=== PATIENT | male | born 1950 | race Two or more races ===

== ENCOUNTER 2024-03-10 09:43 | Outpatient (RCR) | payer MEDICARE, OTHER, MEDICAID, SELFPAY ==
--- NOTE | 2024-03-15 23:13 | CTCFLWUP_ITS ---
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 HISTORY OF PRESENT ILLNESS: Patient is 73-year-old male Slovak-speaking, communication helped with by director medical Nasreen Jeronimo mitchell Patient have stage IV KRAS wild-type BRAF unmutated MSI stable colonic adenocarcinoma with multip le liver mets. S/p sigmoid colectomy in April 2021. Patient was on modified FOLFOX plus bevacizu mab between 08/28/19992021 till March 2022 at that time patient progressed and was started on FOLF IRI and Avastin starting July 06, 2023. On November 20, 2023 outside MRI showed 2 small right lobe liver lesions however PET was negative. Right liver biopsy confirmed metastatic adeno cell carcinoma cons istent with a colorectal cancer. Patient have been on chemotherapy since he was initially diagnosed with stage III colorectal cancer i n 2020. Patient's last chemotherapy was on February 02, 2024. Patient was referred to [facility] for possible resection of the liver lesion. Patient is here to inform me that he already have appointment with the surgeon and doing well. He ne ed to continue holding his therapy for at least 6 weeks before resection can be done. PAST MEDICAL HISTORY: High blood pressure, colorectal cancer s/p colectomy MEDICATIONS: tamsulosin simvastatin amlodipine Decadron IV [dexamethasone IV] Emend [fosaprepitant dimeglumine] Benadryl IV [diphenhydramine IV] dutasteride Zarxio [filgrastim-sndz] Eloxatin [OXALIplatin] D5W Aloxi [palonosetron] 5-FU [fluorouracil] Avastin [bevacizumab] bevacizumab-awwb ramipriL Zarxio [filgrastim-sndz] Zarxio [filgrastim-sndz] bevacizumab-leyda alteplase Decadron IV [dexamethasone IV] Zofran IV [ondansetron IV] Ativan PO [lorazepam PO] atropine Camptosar [irinotecan] LVR [leucovorin] Normal Saline [sodium chloride 0.9 %] 5-FU [fluorouracil] Heparin 1:100 ALLERGIES: No Known Drug Allergies REVIEW OF SYSTEMS EAR MUFF ASSEMBLER: No headache, seizures or blurring of vision. GI: No nausea, vomiting, diarrhea or constipation. CVS: No palpitations or angina pains. Respiratory: No cough, chest pain or shortness of breath. VITAL SIGNS: Date Time PHYSICAL EXAMINATION: Conjunctivae is white. Oral cavity is dry. Chest is clear to auscultation. No wheezes or rales audible. CVS: Rhythm regular, no murmurs or gallops present. Abdomen is soft. No hepatosplenomegaly. Extremities: No pedal edema or cyanosis. LABORATORY DATA: Date Time ASSESSMENT: Stage IV colon cancer with liver metastatic disease Status post colectomy followed by adjuvant therapy Initially treated with FOLFOX with bevacizumab Progressed and have been on FOLFIRI with bevacizumab Last treatment on February 02, 2024 Found with new liver lesions PLAN: Continue holding chemotherapy Patient will get resection of his liver lesions Will resume chemotherapy once surgery is completed RTC in 6 weeks Continue to hold chemotherapy until patient has been seen by me and cleared depending on surgical rec ommendation cc: Meredith Haney, Referring: Eb Haney Electronically Signed {Object.Sanct_Date} at {Object.Sanct_Time} {Object.Sanct_ID*PnP.NameFL@M}, {Object.Sanct_ID*PnP.Suffix@U} Patient: FAITH SALINAS : 1950 MR#: [id number] Account: [id number] FOLLOW UP NOTE Page 4 of 4
== END 2024-04-02 23:59 | disposition home or self-care (01) ==
LOC: SCTC 09:43
PROVIDERS: PCP Family Medicine; Referring Provider Family Medicine; Visit Provider Internal Medicine Hematology & Oncology
DX: C18.7 Malignant neoplasm of sigmoid colon (principal); C78.7 Secondary malignant neoplasm of liver and intrahepatic bile duct; Z90.49 Acquired absence of other specified parts of digestive tract
CPT/HCPCS: 99213; G0463

== ENCOUNTER 2024-04-18 11:39 | Outpatient (RCR) | payer MEDICARE, OTHER, MEDICAID, SELFPAY ==
[2024-04-18 13:33] LABS: Basophils % (Auto) 1 % (0-2.5); Eosinophils # (Auto) 0.2 Thou/mm3 (0.0-0.5); Eosinophils % (Auto) 3 % (0-10); Hematocrit 36.9 % (41.0-53.0); Hemoglobin 12.5 g/dL (13.5-16.0); Immature Granulocytes % (Auto) 0 % (0-0); Immature Granulocytes Auto 0.02 Thou/mm3 (0.00-0.00); Lymphocytes # (Auto) 1.9 Thou/mm3 (1.0-4.8); Lymphocytes % (Auto) 28 % (10-50); Mean Corpuscular HGB Conc 33.9 g/dl (31.0-37.0); Mean Corpuscular Hemoglobin 32.7 pg (25.0-35.0); Mean Corpuscular Volume 97 fL (80-100); Monocytes # (Auto) 0.7 Thou/mm3 (0.0-0.8); Monocytes % (Auto) 11 % (0-12); Neutrophils # (Auto) 3.8 Thou/mm3 (1.8-7.7); Neutrophils % (Auto) 58 % (37-80); Nucleated Red Blood Cell % 0 /100 WBC (0); Platelet Count 180 Thou/mm3 (140-440); RDW Standard Deviation 46.5 fL (35.1-43.9); Red Blood Count 3.82 Miln/mm3 (4.50-5.90); White Blood Count 6.6 Thou/mm3 (3.8-10.6)
[2024-04-18 13:47] LABS: Alanine Aminotransferase 83 U/L (10-49); Albumin, Serum 3.9 gm/dL (3.4-4.8); Albumin/Globulin Ratio 1.1 (1.2-2.2); Alkaline Phosphatase 210 U/L (46-116); Anion Gap 9 (7-16); Aspartate Amino Transferase 63 U/L (0-34); BUN/Creatinine Ratio 14 Ratio (12-20); Bilirubin,Total 0.4 mg/dL (0.3-1.2); Blood Urea Nitrogen 11 mg/dL (9-23); Calcium 9.6 mg/dL (8.3-10.6); Calcium (Corrected) 9.7 mg/dL (8.5-10.1); Carbon Dioxide 24.5 mMol/L (20.0-31.0); Chloride 104 mMol/L (98-107); Creatinine (Component) 0.8 mg/dL (0.6-1.3); Globulin 3.4 gm/dL (2.3-3.5); Glucose 137 mg/dL (74-106); Osmolality,Calculated 275 (275-295); Sodium 137 mMol/L (136-145); Total Protein 7.3 gm/dL (5.7-8.2); eGFR > 60 See Note
[2024-04-18 13:50] LABS: Carcinoembryonic Antigen 2.7 ng/mL (0.0-5.0)
--- NOTE | 2024-05-02 00:40 | CTCFLWUP_ITS ---
Patient: FAITH SALINAS : 1950 Page 2 of 3 FOLLOW UP NOTE DATE OF SERVICE: 04/18/2024 NAME: FAITH SALINAS ACCOUNT: [id number] : 1950 AGE: 73 INTERVAL HISTORY: ONCOLOGY HISTORY: DIAGNOSIS: Malignant neoplasm of sigmoid colon [ICD10] C18.7 DATE OF DIAGNOSIS: 05/27/2021 STAGE/TNM: Stage 4 TREATMENT HISTORY: Care?Plan Start?Date Cycle Day Intent CapOX?adj?T3N1?3mon?4?cycles 05/27/2021 1 21 Curative?(adjuvant) mFOLFOX-6?+?Bevacizumab?5?mg/kg 08/27/2021 1 14 Palliative Bevacizumab?7.5?mg/kg?-?Met 04/02/2022 1 21 Palliative FOLFIRI?-?5-FU?400?and?2400?CIV,?LVR?400,?Irinotecan?180 07/06/2023 1 28 Palliative Bevacizumab?5mg/kg 09/21/2023 1 28 Palliative HISTORY OF PRESENT ILLNESS: Patient is 73-year-old male Mongolian-speaking, communication helped with by medical coordinator pesticide use Ms. Jeronimo yoo. Patient have stage IV KRAS wild-type BRAF unmutated MSI stable colonic adenocarcinoma with multip le liver mets. S/p sigmoid colectomy in April 2021. Patient was on modified FOLFOX plus bevacizu mab between 08/28/19992021 till March 2022 at that time patient progressed and was started on FOLF IRI and Avastin starting July 06, 2023. On November 20, 2023 outside MRI showed 2 small right lobe liver lesions however PET was negative. Right liver biopsy confirmed metastatic adeno cell carcinoma cons istent with a colorectal cancer. Patient have been on chemotherapy since he was initially diagnosed with stage III colorectal cancer i n 2020. Patient's last chemotherapy was on February 02, 2024. Patient was referred to [facility] for possible resection of the liver lesion. Patient is here to inform me that he already have appointment with the surgeon and doing well. He ne ed to continue holding his therapy for at least 6 weeks before resection can be done. OTHER MEDICAL HISTORY/CONDITIONS: FAMILY HISTORY: SOCIAL HISTORY: MEDICATIONS: 1. amlodipine - 5 mg 1 tab Daily 2. dutasteride - 0.5 mg 1 Capsule Daily 3. ramipriL - 10 mg 1 Capsule Daily 4. simvastatin - 20 mg 1 tab Daily 5. tamsulosin - 0.4 mg 1 Capsule Daily Medications Last Reconciled by Thea Leblanc MA on 04/18/2024 ALLERGIES: No Known Drug Allergies REVIEW OF SYSTEMS: A complete 14-point review of systems was performed and is negative except as noted in interval histo ry. PHYSICAL EXAMINATION: VITAL SIGNS: Temperature?96.5, B/P?124/67, Oxygen?Saturation?96% Weight?192?lbs PAIN: 0 - No pain ECOG Performance Status: 0 - Asymptomatic and fully active GENERAL APPEARANCE: Appears well, in no apparent distress, appropriately interactive. HEENT: Normocephalic, no temporal wasting, normal conjunctiva, no scleral icterus, normal hearing, li ps without lesions, neck normal range of motion. CARDIOVASCULAR: Not assessed. PULMONARY: Normal respiratory effort, no respiratory distress or use of accessory muscles, speaking i n full sentences, no tachypnea. EXTREMITIES: No pedal edema or cyanosis. SKIN: Normal skin appearance. NEUROLOGIC: Alert and oriented x4. PSHYCHIATRIC: Appropriate affect, mood normal, behavior normal, intact thought and speech. LABORATORY DATA: I have personally reviewed and interpreted each of the patient?s relevant lab tests, abnormal finding s are below: Date 04/18/24 ??WHITE?BLOOD?COUNT?(Thou/mm3) 6.6 ??RED?BLOOD?COUNT?(Miln/mm3) 3.82?L ??HEMOGLOBIN?(gm/dl) 12.5?L ??HEMATOCRIT?(%) 36.9?L ??PLATELET?COUNT?(Thou/mm3) 180 ??NEUTROPHILS?%,?AUTO?(%) 58 ??LYMPH?%,?AUTO?(%) 28 ??NEUTROPHILS,?AUTO?(Thou/mm3) 3.8 ASSESSMENT/PLAN: Stage IV colon cancer with liver metastatic disease Status post colectomy followed by adjuvant therapy Initially treated with FOLFOX with bevacizumab Progressed and have been on FOLFIRI with bevacizumab Last treatment on February 02, 2024 Found with new liver lesions Resume chemo with no lorenza ORDERS: Cbc,cmp,cea RETURN TO CLINIC: 6-8 weeks BILLING AND COMPLIANCE: I reviewed external records from providers outside my specialty as summarized above. I spent a total of 50 minutes on this patient?s care on the day of their visit excluding time spent related to any bi lled procedures. This time includes time spent with the patient as well as time spent documenting in the medical record, reviewing patients records and tests, obtaining history, placing orders, communi cating with other healthcare professionals, counseling the patient, family or caregiver, and/or care coordination for the diagnoses above. Electronically Signed by: Amado Salas MD T: 12:37 AM CC: PCP: Eb Haney Referring: Eb Haney This document was completed utilizing speech recognition software. Grammatical errors, random word in sertions, pronoun errors, and incomplete sentences are an occasional consequence of this system due t o software limitations, ambient noise, and hardware issues. Any formal questions or concerns about th e content, text or information contained within the body of this dictation should be directly address ed to the provider for clarification.
== END 2024-05-03 23:59 | disposition home or self-care (01) ==
LOC: SCTC 11:39
PROVIDERS: PCP Family Medicine; Referring Provider Family Medicine; Visit Provider Internal Medicine Hematology & Oncology
DX: C18.7 Malignant neoplasm of sigmoid colon (principal); C78.7 Secondary malignant neoplasm of liver and intrahepatic bile duct; Z90.49 Acquired absence of other specified parts of digestive tract; Z92.3 Personal history of irradiation
CPT/HCPCS: 36591; 80053; 82378; 85025; 99213; A4216; J1642; G0463

== ENCOUNTER → 2024-07-11 | Outpatient (CLI) | payer MEDICARE, OTHER, MEDICAID, SELFPAY ==
--- NOTE | 2024-07-11 14:00 | XR_ITS ---
Examination: CT chest with intravenous contrast CT abdomen with intravenous contrast CT pelvis with intravenous contrast CT chest without intravenous contrast CT abdomen without intravenous contrast CT pelvis without intravenous contrast 2-D coronal and sagittal reconstructions Time of exam: July 11, 2024 1448 hrs. Comparison MR abdomen November 20, 2023, PET CT scan November 03, 2023, CT chest abdomen pelvis September 30, 2023 Indications: Diagnosis malignant neoplasm sigmoid colon 3 years ago, hepatic metastases CTDI: vol (mGy) : 24.9 DLP: (mGycm): 1380 Technique: Multiple axial images of the chest, abdomen and pelvis with intravenous contrast, 3.0 mm slice thickness. Images obtained post intravenous injection Isovue 370 60 cc. 2-D sagittal and coronal reconstructions. Low dose protocols were performed. One or more of the following dose reduction techniques were used; automated exposure control, adjustment of the mA and/or KV according to patient size, use of iterative reconstruction technique. Findings: No thoracic aortic aneurysm dilatation Pulmonary artery segments are not enlarged Mild calcification left main coronary artery No paratracheal tracheobronchial or bronchopulmonary adenopathy No pneumonia or pulmonary edema or pleural disease or pulmonary nodules Anterior mildly enhancing right lobe liver lesion 5.6 cm compared to 1.[address] abdomen September 30, 2023 and compared to 14 mm on MR abdomen November 20, 2023 Posterior right lobe liver lesion measures 21 mm compared to [address] abdomen September 30, 2023 No gallstones No pancreatic or adrenal mass No hydronephrosis No interval abdominal or pelvic lymphadenopathy Normal appendix No ascites No bowel obstruction Urinary bladder intact Impression: No mediastinal lymphadenopathy No pneumonia, pulmonary edema, pleural disease or pulmonary nodules Progression of hepatic metastatic disease compared to MR abdomen November 20, 2023, PET CT scan November 03, 2023, CT chest abdomen September 30, 2023
== END | disposition home or self-care (01) ==
LOC: CCTX 13:08
PROVIDERS: PCP Family Medicine; Referring Provider Internal Medicine Hematology & Oncology; Visit Provider Internal Medicine Hematology & Oncology
DX: C78.7 Secondary malignant neoplasm of liver and intrahepatic bile duct (principal); C18.7 Malignant neoplasm of sigmoid colon
CPT/HCPCS: 71270; 74178; A4649; Q9967

== ENCOUNTER 2024-07-25 09:41 | Outpatient (RCR) | payer MEDICARE, OTHER, MEDICAID, SELFPAY ==
[2024-07-05 09:57] LABS: Basophils % (Auto) 0 % (0-2.5); Eosinophils # (Auto) 0.1 Thou/mm3 (0.0-0.5); Eosinophils % (Auto) 3 % (0-10); Hematocrit 38.6 % (41.0-53.0); Hemoglobin 13.1 g/dL (13.5-16.0); Immature Granulocytes % (Auto) 0 % (0-0); Immature Granulocytes Auto 0.02 Thou/mm3 (0.00-0.00); Lymphocytes # (Auto) 1.5 Thou/mm3 (1.0-4.8); Lymphocytes % (Auto) 30 % (10-50); Mean Corpuscular HGB Conc 33.9 g/dl (31.0-37.0); Mean Corpuscular Hemoglobin 32.7 pg (25.0-35.0); Mean Corpuscular Volume 96 fL (80-100); Monocytes # (Auto) 0.6 Thou/mm3 (0.0-0.8); Monocytes % (Auto) 13 % (0-12); Neutrophils # (Auto) 2.7 Thou/mm3 (1.8-7.7); Neutrophils % (Auto) 54 % (37-80); Nucleated Red Blood Cell % 0 /100 WBC (0); Platelet Count 200 Thou/mm3 (140-440); RDW Standard Deviation 47.8 fL (35.1-43.9); Red Blood Count 4.01 Miln/mm3 (4.50-5.90); White Blood Count 4.9 Thou/mm3 (3.8-10.6)
[2024-07-05 10:23] LABS: Alanine Aminotransferase 31 U/L (10-49); Albumin/Globulin Ratio 1.3 (1.2-2.2); Alkaline Phosphatase 121 U/L (46-116); Anion Gap 9 (7-16); Aspartate Amino Transferase 56 U/L (0-34); BUN/Creatinine Ratio 9 Ratio (12-20); Bilirubin,Total 0.5 mg/dL (0.3-1.2); Blood Urea Nitrogen 7 mg/dL (9-23); Calcium 9.1 mg/dL (8.3-10.6); Calcium (Corrected) 9.1 mg/dL (8.5-10.1); Carbon Dioxide 24.4 mMol/L (20.0-31.0); Chloride 106 mMol/L (98-107); Creatinine (Component) 0.8 mg/dL (0.6-1.3); Glucose 179 mg/dL (74-106); Osmolality,Calculated 279 (275-295); Potassium 3.9 mMol/L (3.4-5.1); Sodium 139 mMol/L (136-145); eGFR > 60 See Note
[2024-07-05 10:26] LABS: Carcinoembryonic Antigen 3.2 ng/mL (0.0-5.0)
--- NOTE | 2024-07-25 10:45 | CTCFLWUP_ITS ---
Patient: FAITH SALINAS : 1950 Page 2 of 2 FOLLOW UP NOTE DATE OF SERVICE: 07/25/2024 NAME: FAITH SALINAS ACCOUNT: [id number] : 1950 AGE: 73 INTERVAL HISTORY: Patient have completed RFA to his liver lesions. He is doing well. ONCOLOGY HISTORY:?[facility] Hx? DIAGNOSIS: Malignant neoplasm of sigmoid colon [ICD10] C18.7 DATE OF DIAGNOSIS: 05/27/2021 STAGE/TNM: Stage 4 TREATMENT HISTORY: Care?Plan Start?Date Cycle Day Intent CapOX?adj?T3N1?3mon?4?cycles 05/27/2021 1 21 Curative?(adjuvant) mFOLFOX-6?+?Bevacizumab?5?mg/kg 08/27/2021 1 14 Palliative Bevacizumab?7.5?mg/kg?-?Met 04/02/2022 1 21 Palliative FOLFIRI?-?5-FU?400?and?2400?CIV,?LVR?400,?Irinotecan?180 07/06/2023 1 28 Palliative Bevacizumab?5mg/kg 09/21/2023 1 28 Palliative HISTORY OF PRESENT ILLNESS: Patient is 73-year-old male Romanian-speaking, communication helped with by medical assistant per diem Ms. Garsia. 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 S/p sigmoid colectomy in April 2021. Patient was on modified FOLFOX plus bevacizumab between 08/28/19992021 till March 2022 at that time patient progressed and was started on FOLFIRI and Avastin starting July 06, 2023. On November 20, 2023 outside MRI showed 2 small right lobe liver lesions however PET was negative. Right liver biopsy confirmed metastatic adeno cell carcinoma cons istent with a colorectal cancer. Patient have been on chemotherapy since he was initially diagnosed with stage III colorectal cancer in 2020. Patient's last chemotherapy was on February 02, 2024. Patient was referred to [facility] for possible resection of the liver lesion. Patient is here to inform me that he already have appointment with the surgeon and doing well. He need to continue holding his therapy for at least 6 weeks before resection can be done. 5Anterior mildly enhancing right lobe liver lesion 5.6 cm compared to 1.[address] abdomen September 30, 2023 and compared to 14 mm on MR abdomen November 20, 2023 Posterior right lobe liver lesion measures 21 mm compared to [address] abdomen September 30, 2023 -Patient had RFA done on 07/21/2024. OTHER MEDICAL HISTORY/CONDITIONS: FAMILY HISTORY: ?[facility] Hx? SOCIAL HISTORY: MEDICATIONS: 1. amlodipine - 5 mg 1 tab Daily 2. dutasteride - 0.5 mg 1 Capsule Daily 3. mouthwashes - As directed 4. ramipriL - 10 mg 1 Capsule Daily 5. simvastatin - 20 mg 1 tab Daily 6. tamsulosin - 0.4 mg 1 Capsule Daily?Palabra Meds? Medications Last Reconciled by Cristina Taylor MA on 06/21/2024 ALLERGIES: No Known Drug Allergies REVIEW OF SYSTEMS: A complete 14-point review of systems was performed and is negative except as noted in interval history. PHYSICAL EXAMINATION:?[facility] PE? VITAL SIGNS: ECOG Performance Status: 0 - Asymptomatic and fully active GENERAL APPEARANCE: Appears well, in no apparent distress, appropriately interactive. HEENT: Normocephalic, no temporal wasting, normal conjunctiva, no scleral icterus, normal hearing, lips without lesions, neck normal range of motion. CARDIOVASCULAR: Not assessed. PULMONARY: Normal respiratory effort, no respiratory distress or use of accessory muscles, speaking in full sentences, no tachypnea. EXTREMITIES: No pedal edema or cyanosis. SKIN: Normal skin appearance. NEUROLOGIC: Alert and oriented x4. PSHYCHIATRIC: Appropriate affect, mood normal, behavior normal, intact thought and speech. LABORATORY DATA: I have personally reviewed and interpreted each of the patient?s relevant lab tests, abnormal findings are below: Date 06/13/24 07/05/24 ??WHITE?BLOOD?COUNT?(Thou/mm3) ? 4.9 ??RED?BLOOD?COUNT?(Miln/mm3) ? 4.01?L ??HEMOGLOBIN?(gm/dl) ? 13.1?L ??HEMATOCRIT?(%) ? 38.6?L ??PLATELET?COUNT?(Thou/mm3) ? 200 ??NEUTROPHILS?%,?AUTO?(%) ? 54 ??LYMPH?%,?AUTO?(%) ? 30 ??NEUTROPHILS,?AUTO?(Thou/mm3) ? 2.7 ??GLUCOSE,RANDOM?(mg/dL) 193?H 179?H ??BLOOD?UREA?NITROGEN?(mg/dL) 14 7?L ??CREATININE?(mg/dL) 0.80 0.80 ??SODIUM?(mmol/L) 140 139 ??POTASSIUM?(mmol/L) 3.7 3.9 ??CHLORIDE?(mmol/L) 108?H 106 ??CrCl?(CandG)?(ml/min) 88.82 87.95 ??AST/SGOT?(Unit/L) 49?H 56?H ??ALT/SGPT?(Unit/L) 65?H 31 ??ALKALINE?PHOSPHATASE?(Unit/L) 139?H 121?H ??BILIRUBIN,?TOTAL?(mg/dL) 0.5 0.5 ??PROTEIN?TOTAL?(gm/dl) 6.9 7.0 ??ALBUMIN,?SERUM?(gm/dl) 3.9 4.0 ??GLOBULIN?(gm/dl) 3.0 3.0 ??ALBUMIN/GLOBULIN?RATIO 1.3 1.3 ??CALCIUM,?SERUM?(mg/dL) 9.0 9.1 ??CALCIUM?SERUM?(CORRECTED)?(mg/dL) 9.1 9.1 ??CEA?(O*)?(ng/ml) ? 3.2 ASSESSMENT/PLAN:?Mike Salas Assessment/Plan? Stage IV colon cancer with liver metastatic disease Status post colectomy followed by adjuvant therapy Initially treated with FOLFOX with bevacizumab Progressed and have been on FOLFIRI with bevacizumab Last treatment on February 02, 2024 Found with new liver lesions Resume chemo with no lorenza Patient have completed RFA and will resume chemotherapy after August 17, 2024 ORDERS: Order # Description [id number] CBC + Comprehensive Metabolic Panel + [facility] [id number] Lab Appointment [id number] Follow Up Appointment [id number] Infusion 4 Hours [id number] Discontinue CIV Pump [id number] CBC [id number] Lab Appointment [id number] Infusion 4 Hours [id number] Discontinue CIV Pump [id number] CBC + Comprehensive Metabolic Panel + [facility] [id number] Lab Appointment [id number] Follow Up Appointment [id number] Infusion 4 Hours [id number] Discontinue CIV Pump [id number] CBC [id number] Lab Appointment [id number] Infusion 4 Hours [id number] Discontinue CIV Pump [id number] CBC + Comprehensive Metabolic Panel + [facility]A [id number] Lab Appointment [id number] Follow Up Appointment [id number] Infusion 4 Hours [id number] Discontinue CIV Pump [id number] CBC [id number] Lab Appointment [id number] Infusion 4 Hours [id number] Discontinue CIV Pump [id number] CBC + Comprehensive Metabolic Panel + [facility] [id number] Lab Appointment [id number] Follow Up Appointment [id number] Infusion 4 Hours [id number] Discontinue CIV Pump [id number] CBC [id number] Lab Appointment [id number] Infusion 4 Hours [id number] Discontinue CIV Pump [id number] CBC + Comprehensive Metabolic Panel + [facility]A [id number] Lab Appointment [id number] Follow Up Appointment [id number] Infusion 4 Hours [id number] Discontinue CIV Pump [id number] CBC [id number] Lab Appointment [id number] Infusion 4 Hours [id number] Discontinue CIV Pump [id number] CBC + Comprehensive Metabolic Panel + CEA [id number] Lab Appointment [id number] Follow Up Appointment MRI of the liver to see response to treatment. Can be completed after 16 August RETURN TO CLINIC: I will see him back in the clinic in 2 months. BILLING AND COMPLIANCE: I reviewed external records from providers outside my specialty as summarized above. I spent a total of 50 minutes on this patient?s care on the day of their visit excluding time spent related to any billed procedures. This time includes time spent with the patient as well as time spent documenting in the medical record, reviewing patients records and tests, obtaining history, placing orders, communicating with other healthcare professionals, counseling the patient, family or caregiver, and/or care coordination for the diagnoses above. Electronically Signed by: Amado Salas MD T: 10:42 AM CC: PCP: Eb Haney Referring: Eb Haney This document was completed utilizing speech recognition software. Grammatical errors, random word insertions, pronoun errors, and incomplete sentences are an occasional consequence of this system due to software limitations, ambient noise, and hardware issues. Any formal questions or concerns about the content, text or information contained within the body of this dictation should be directly addressed to the provider for clarification.
== END 2024-08-01 23:59 | disposition home or self-care (01) ==
LOC: SCTC 09:41
PROVIDERS: PCP Family Medicine; Referring Provider Family Medicine; Visit Provider Internal Medicine Hematology & Oncology
DX: Z51.11 Encounter for antineoplastic chemotherapy (principal); C18.7 Malignant neoplasm of sigmoid colon; C78.7 Secondary malignant neoplasm of liver and intrahepatic bile duct; Z90.49 Acquired absence of other specified parts of digestive tract
CPT/HCPCS: 36591; 80053; 82378; 85025; 96366; 96367; 96368; 96375; 96413; 96415; 96416; 99213; A4216; J0461; J0640; J1100; J1642; J2405; J7040; J7050; J9190; J9206; A9270; G0463

== ENCOUNTER 2024-08-31 10:37 | Outpatient (RCR) | payer MEDICARE, OTHER, MEDICAID, SELFPAY ==
[2024-08-12 11:07] LABS: Collection Type, Urine Voided
[2024-08-12 11:12] LABS: Basophils % (Auto) 0 % (0-2.5); Eosinophils # (Auto) 0.2 Thou/mm3 (0.0-0.5); Eosinophils % (Auto) 3 % (0-10); Hematocrit 36.5 % (41.0-53.0); Hemoglobin 12.3 g/dL (13.5-16.0); Immature Granulocytes % (Auto) 0 % (0-0); Immature Granulocytes Auto 0.02 Thou/mm3 (0.00-0.00); Lymphocytes # (Auto) 1.4 Thou/mm3 (1.0-4.8); Lymphocytes % (Auto) 24 % (10-50); Mean Corpuscular HGB Conc 33.7 g/dl (31.0-37.0); Mean Corpuscular Hemoglobin 32.4 pg (25.0-35.0); Mean Corpuscular Volume 96 fL (80-100); Monocytes # (Auto) 0.6 Thou/mm3 (0.0-0.8); Monocytes % (Auto) 10 % (0-12); Neutrophils # (Auto) 3.9 Thou/mm3 (1.8-7.7); Neutrophils % (Auto) 63 % (37-80); Nucleated Red Blood Cell % 0 /100 WBC (0); Platelet Count 153 Thou/mm3 (140-440); RDW Standard Deviation 47.8 fL (35.1-43.9); White Blood Count 6.1 Thou/mm3 (3.8-10.6)
[2024-08-12 11:25] LABS: Glucose Estimated Average 143 mg/dL (80-131); Hemoglobin A1C 6.6 % Hgb (4.8-6.0)
[2024-08-12 11:29] LABS: Bilirubin,Urine Negative (Negative); Blood,Urine Negative (Negative); Glucose, Urine Negative (Negative); Ketones,Urine Negative (Negative); Leukocyte Esterase,Urine Negative (Negative); Nitrite,Urine Negative (Negative); PH,Urine 5.5 (5.0-7.0); Protein,Urine Negative (Neg - Trace); RBC,Urine < 1 /hpf (0-3); Specific Gravity,Urine 1.018 (1.001-1.035); Squamous Epithelial Cell,Urine < 1 /hpf (0-5); Urobilinogen,Urine Negative mg/dL (0.0-1.0); WBC,Urine 4 /hpf (0-5)
[2024-08-12 11:30] LABS: Clarity,Urine Cloudy (Clear/Hazy); Color,Urine Drk-Brown (Lt Yel-Yel)
[2024-08-12 11:36] LABS: Alanine Aminotransferase 45 U/L (10-49); Albumin, Serum 3.8 gm/dL (3.4-4.8); Albumin/Globulin Ratio 1.2 (1.2-2.2); Alkaline Phosphatase 129 U/L (46-116); Anion Gap 9 (7-16); Aspartate Amino Transferase 66 U/L (0-34); BUN/Creatinine Ratio 11 Ratio (12-20); Bilirubin,Total 0.7 mg/dL (0.3-1.2); Blood Urea Nitrogen 10 mg/dL (9-23); Calcium 8.9 mg/dL (8.3-10.6); Calcium (Corrected) 9.1 mg/dL (8.5-10.1); Carbon Dioxide 23.7 mMol/L (20.0-31.0); Chloride 105 mMol/L (98-107); Creatinine (Component) 0.9 mg/dL (0.6-1.3); Globulin 3.2 gm/dL (2.3-3.5); Glucose 144 mg/dL (74-106); Osmolality,Calculated 277 (275-295); Potassium 3.7 mMol/L (3.4-5.1); Sodium 138 mMol/L (136-145); eGFR > 60 See Note
--- NOTE | 2024-08-23 14:47 | CTCFLWUP_ITS ---
Patient: TED LIAO : 1950 Page 2 of 2 FOLLOW UP NOTE DATE OF SERVICE: 08/23/2024 NAME: TED LIAO ACCOUNT: [id number] : 1950 AGE: 74 INTERVAL HISTORY: Patient have completed RFA to his liver lesions. Follow-up for colon cancer, liver lesion, pain and discomfort in both shoulders Ted Liao, a patient with a history of colon cancer, presents for follow-up after a liver lesion was found on his last scan in July 2024. He recently underwent a procedure on his liver with interventional radiology. The patient reports experiencing pain and discomfort in both shoulders. He has not received any chemotherapy since July. His CEA level has been stable and within normal limits. The patient is currently on Fulfori as part of his treatment regimen. Mr. Liao is scheduled for imaging in September to assess the response to the liver intervention. He will resume chemotherapy, with plans to add bevacizumab to his current regimen. The patient's next line of chemotherapy will be with Lonsurf and bevacizumab if progression is found. Medical History - Colon cancer - Liver lesion discovered in July 2024 Surgical History - Liver procedure with interventional radiology in July 2024 Medications and Supplements - Fulfuri - Bevacizumab - Recently added to current regimen Review of Systems Musculoskeletal: Positive for pain and discomfort in both shoulders. ONCOLOGY HISTORY: DIAGNOSIS: Malignant neoplasm of sigmoid colon [ICD10] C18.7 DATE OF DIAGNOSIS: 05/27/2021 STAGE/TNM: Stage 4 TREATMENT HISTORY: Care?Plan Start?Date Cycle Day Intent CapOX?adj?T3N1?3mon?4?cycles 05/27/2021 1 21 Curative?(adjuvant) mFOLFOX-6?+?Bevacizumab?5?mg/kg 08/27/2021 1 14 Palliative Bevacizumab?7.5?mg/kg?-?Met 04/02/2022 1 21 Palliative FOLFIRI?-?5-FU?400?and?2400?CIV,?LVR?400,?Irinotecan?180 07/06/2023 1 28 Palliative Bevacizumab?5mg/kg 09/21/2023 1 28 Palliative Bevacizumab?5mg/kg 08/29/2024 1 28 Palliative HISTORY OF PRESENT ILLNESS: Patient is 74-year-old male [place]-speaking, communication helped with by biomedical instrument technician Ms. Garsia. 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 S/p sigmoid colectomy in April 2021. Patient was on modified FOLFOX plus bevacizumab between 08/28/19992021 till March 2022 at that time patient progressed and was started on FOLFIRI and Avastin starting July 06, 2023. On November 20, 2023 outside MRI showed 2 small right lobe liver lesions however PET was negative. Right liver biopsy confirmed metastatic adeno cell carcinoma cons istent with a colorectal cancer. Patient have been on chemotherapy since he was initially diagnosed with stage III colorectal cancer in 2020. Patient's last chemotherapy was on February 02, 2024. Patient was referred to [facility] for possible resection of the liver lesion. Patient is here to inform me that he already have appointment with the surgeon and doing well. He need to continue holding his therapy for at least 6 weeks before resection can be done. 07/11/2024nterior mildly enhancing right lobe liver lesion 5.6 cm compared to 1.[address] abdomen September 30, 2023 and compared to 14 mm on MR abdomen November 20, 2023 Posterior right lobe liver lesion measures 21 mm compared to [address] abdomen September 30, 2023 -Patient had RFA done on 07/21/2024. OTHER MEDICAL HISTORY/CONDITIONS: FAMILY HISTORY: SOCIAL HISTORY: MEDICATIONS: 1. amlodipine - 5 mg 1 tab Daily 2. dutasteride - 0.5 mg 1 Capsule Daily 3. mouthwashes - As directed 4. ramipriL - 10 mg 1 Capsule Daily 5. simvastatin - 20 mg 1 tab Daily 6. tamsulosin - 0.4 mg 1 Capsule Daily Medications Last Reconciled by Thea Leblanc MA on 08/23/2024 ALLERGIES: No Known Drug Allergies REVIEW OF SYSTEMS: A complete 14-point review of systems was performed and is negative except as noted in interval history. PHYSICAL EXAMINATION: VITAL SIGNS: Temperature?98.5, B/P?137/80, Oxygen?Saturation?96% Weight?191.6?lbs (Change?since?08/17/24:?-5.2?lbs) PAIN: 2 - Mild pain GENERAL APPEARANCE: Appears well, in no apparent distress, appropriately interactive. HEENT: Normocephalic, no temporal wasting, normal conjunctiva, no scleral icterus, normal hearing, lips without lesions, neck normal range of motion. CARDIOVASCULAR: Not assessed. PULMONARY: Normal respiratory effort, no respiratory distress or use of accessory muscles, speaking in full sentences, no tachypnea. EXTREMITIES: No pedal edema or cyanosis. SKIN: Normal skin appearance. NEUROLOGIC: Alert and oriented x4. PSHYCHIATRIC: Appropriate affect, mood normal, behavior normal, intact thought and speech. LABORATORY DATA: I have personally reviewed and interpreted each of the patient?s relevant lab tests, abnormal findings are below: Date 07/05/24 08/12/24 ??WHITE?BLOOD?COUNT?(Thou/mm3) ? 6.1 ??RED?BLOOD?COUNT?(Miln/mm3) ? 3.80?L ??HEMOGLOBIN?(gm/dl) ? 12.3?L ??HEMATOCRIT?(%) ? 36.5?L ??PLATELET?COUNT?(Thou/mm3) ? 153 ??NEUTROPHILS?%,?AUTO?(%) ? 63 ??LYMPH?%,?AUTO?(%) ? 24 ??NEUTROPHILS,?AUTO?(Thou/mm3) ? 3.9 ??GLUCOSE,RANDOM?(mg/dL) 179?H 144?H ??BLOOD?UREA?NITROGEN?(mg/dL) 7?L 10 ??CREATININE?(mg/dL) 0.80 0.90 ??SODIUM?(mmol/L) 139 138 ??POTASSIUM?(mmol/L) 3.9 3.7 ??CHLORIDE?(mmol/L) 106 105 ??CrCl?(CandG)?(ml/min) 87.95 76.89 ??AST/SGOT?(Unit/L) 56?H 66?H ??ALT/SGPT?(Unit/L) 31 45 ??ALKALINE?PHOSPHATASE?(Unit/L) 121?H 129?H ??BILIRUBIN,?TOTAL?(mg/dL) 0.5 0.7 ??PROTEIN?TOTAL?(gm/dl) 7.0 7.0 ??ALBUMIN,?SERUM?(gm/dl) 4.0 3.8 ??GLOBULIN?(gm/dl) 3.0 3.2 ??ALBUMIN/GLOBULIN?RATIO 1.3 1.2 ??CALCIUM,?SERUM?(mg/dL) 9.1 8.9 ??CALCIUM?SERUM?(CORRECTED)?(mg/dL) 9.1 9.1 ??CEA?(O*)?(ng/ml) ? 3.0 ASSESSMENT/PLAN: Ted Liao, male patient with colon cancer, presents for follow-up after liver lesion intervention and chemotherapy interruption, complaining of bilateral shoulder discomfort. Stage IV colon cancer with liver metastatic disease Status post colectomy followed by adjuvant therapy Initially treated with FOLFOX with bevacizumab Progressed and have been on FOLFIRI with bevacizumab Last treatment on February 02, 2024 Found with new liver lesions s/p ir ablation Resume chemo with lorenza Colon cancer with liver metastasis Assessment: Patient with colon cancer history, found to have a liver lesion in July 2024. Underwent interventional radiology procedure on the liver. CT scan on July 12, 2024, showed an anterior mildly enhancing right upper lobe liver lesion measuring 5.6 cm, increased from 1.[address] abdomen of September 30, 2023. No other lymphadenopathy or lesions noted. CEA levels have been stable and within normal limits (last value 3.0), with previous elevation in June 2023. Mitchell testing results show a level of 44 on July 06, 2024, with no prior results for comparison. Patient has not received chemotherapy since July. Plan: - Resume chemotherapy with current regimen (Folfuri) - Add bevacizumab to current regimen - Scheduled imaging in September to assess response to intervention - Continue monitoring CEA levels - If progression is found on next scan, change chemotherapy to Lonsurf and bevacizumab - Follow-up appointment after imaging results are available Bilateral shoulder discomfort Assessment: Patient reports pain and increased discomfort in both shoulders. The etiology is unclear based on the provided information. Plan: - Monitor symptoms - Reassess at next follow-up ORDERS: Order # Description [id number] CBC + Comprehensive Metabolic Panel + CEA [id number] Lab Appointment [id number] Follow Up Appointment [id number] Infusion 4 Hours [id number] Infusion 2 Hours [id number] Discontinue CIV Pump [id number] CBC [id number] Infusion 4 Hours [id number] Lab Appointment [id number] Infusion 2 Hours [id number] Discontinue CIV Pump [id number] CBC + Comprehensive Metabolic Panel + CEA [id number] Lab Appointment [id number] CBC + Comprehensive Metabolic Panel [id number] Lab Appointment [id number] Follow Up Appointment [id number] Follow Up Appointment [id number] Infusion 4 Hours [id number] Infusion 2 Hours [id number] Discontinue CIV Pump [id number] CBC [id number] Lab Appointment [id number] Infusion 4 Hours [id number] Infusion 2 Hours [id number] Discontinue CIV Pump [id number] CBC + Comprehensive Metabolic Panel + CEA [id number] Lab Appointment [id number] CBC + Comprehensive Metabolic Panel [id number] Lab Appointment [id number] Follow Up Appointment [id number] Follow Up Appointment [id number] Infusion 4 Hours [id number] Infusion 2 Hours [id number] Discontinue CIV Pump [id number] CBC [id number] Lab Appointment [id number] Infusion 4 Hours [id number] Infusion 2 Hours [id number] Discontinue CIV Pump [id number] CBC + Comprehensive Metabolic Panel + CEA [id number] Lab Appointment [id number] CBC + Comprehensive Metabolic Panel [id number] Lab Appointment [id number] Follow Up Appointment [id number] Follow Up Appointment [id number] Infusion 4 Hours [id number] Infusion 2 Hours [id number] Discontinue CIV Pump [id number] CBC [id number] Lab Appointment [id number] Infusion 4 Hours [id number] Infusion 2 Hours [id number] Discontinue CIV Pump [id number] CBC + Comprehensive Metabolic Panel + CEA [id number] Lab Appointment [id number] CBC + Comprehensive Metabolic Panel [id number] Lab Appointment [id number] Follow Up Appointment [id number] Follow Up Appointment [id number] Infusion 4 Hours [id number] Infusion 2 Hours [id number] Discontinue CIV Pump [id number] CBC [id number] Lab Appointment [id number] Infusion 4 Hours [id number] Infusion 2 Hours [id number] Discontinue CIV Pump [id number] CBC + Comprehensive Metabolic Panel + CEA [id number] Lab Appointment [id number] CBC + Comprehensive Metabolic Panel [id number] Lab Appointment [id number] Follow Up Appointment [id number] Follow Up Appointment [id number] Infusion 2 Hours [id number] Infusion 2 Hours [id number] CBC + Comprehensive Metabolic Panel [id number] Lab Appointment [id number] Follow Up Appointment RETURN TO CLINIC: BILLING AND COMPLIANCE: I reviewed external records from providers outside my specialty as summarized above. I spent a total of 50 minutes on this patient?s care on the day of their visit excluding time spent related to any billed procedures. This time includes time spent with the patient as well as time spent documenting in the medical record, reviewing patients records and tests, obtaining history, placing orders, communicating with other healthcare professionals, counseling the patient, family or caregiver, and/or care coordination for the diagnoses above. Electronically Signed by: Amado Salas MD T: 2:45 PM CC: PCP: Eb Haney Referring: Eb Haney This document was completed utilizing speech recognition software. Grammatical errors, random word insertions, pronoun errors, and incomplete sentences are an occasional consequence of this system due to software limitations, ambient noise, and hardware issues. Any formal questions or concerns about the content, text or information contained within the body of this dictation should be directly addressed to the provider for clarification.
[2024-08-26 10:53] LABS: Collection Type, Urine Voided; Squamous Epithelial Cell,Urine 0 /hpf (0-5)
[2024-08-26 11:01] LABS: Basophils % (Auto) 1 % (0-2.5); Eosinophils # (Auto) 0.1 Thou/mm3 (0.0-0.5); Eosinophils % (Auto) 2 % (0-10); Hematocrit 35.6 % (41.0-53.0); Hemoglobin 12.2 g/dL (13.5-16.0); Immature Granulocytes % (Auto) 0 % (0-0); Immature Granulocytes Auto 0.01 Thou/mm3 (0.00-0.00); Lymphocytes # (Auto) 1.2 Thou/mm3 (1.0-4.8); Lymphocytes % (Auto) 27 % (10-50); Mean Corpuscular HGB Conc 34.3 g/dl (31.0-37.0); Mean Corpuscular Hemoglobin 33.6 pg (25.0-35.0); Mean Corpuscular Volume 98 fL (80-100); Monocytes # (Auto) 0.4 Thou/mm3 (0.0-0.8); Monocytes % (Auto) 9 % (0-12); Neutrophils # (Auto) 2.6 Thou/mm3 (1.8-7.7); Neutrophils % (Auto) 60 % (37-80); Nucleated Red Blood Cell % 0 /100 WBC (0); Platelet Count 177 Thou/mm3 (140-440); RDW Standard Deviation 48.2 fL (35.1-43.9); Red Blood Count 3.63 Miln/mm3 (4.50-5.90); White Blood Count 4.3 Thou/mm3 (3.8-10.6)
[2024-08-26 11:21] LABS: Carcinoembryonic Antigen 2.4 ng/mL (0.0-5.0)
[2024-08-26 11:25] LABS: Alanine Aminotransferase 56 U/L (10-49); Albumin/Globulin Ratio 1.4 (1.2-2.2); Alkaline Phosphatase 119 U/L (46-116); Anion Gap 6 (7-16); Aspartate Amino Transferase 52 U/L (0-34); BUN/Creatinine Ratio 12 Ratio (12-20); Bilirubin,Total 0.6 mg/dL (0.3-1.2); Blood Urea Nitrogen 11 mg/dL (9-23); Calcium 8.8 mg/dL (8.3-10.6); Calcium (Corrected) 8.8 mg/dL (8.5-10.1); Carbon Dioxide 24.8 mMol/L (20.0-31.0); Chloride 107 mMol/L (98-107); Creatinine (Component) 0.9 mg/dL (0.6-1.3); Globulin 2.8 gm/dL (2.3-3.5); Glucose 164 mg/dL (74-106); Osmolality,Calculated 279 (275-295); Potassium 4.2 mMol/L (3.4-5.1); Sodium 138 mMol/L (136-145); Total Protein 6.8 gm/dL (5.7-8.2); eGFR > 60 See Note
[2024-08-26 11:26] LABS: Bilirubin,Urine Negative (Negative); Blood,Urine Negative (Negative); Color,Urine Yellow (Lt Yel-Yel); Glucose, Urine Negative (Negative); Ketones,Urine Negative (Negative); Leukocyte Esterase,Urine Negative (Negative); Nitrite,Urine Negative (Negative); PH,Urine 5.5 (5.0-7.0); Protein,Urine Negative (Neg - Trace); RBC,Urine 4 /hpf (0-3); Sperm,Urine Present; Urobilinogen,Urine Negative mg/dL (0.0-1.0); WBC,Urine 1 /hpf (0-5)
[2024-08-26 11:27] LABS: Clarity,Urine Hazy (Clear/Hazy)
== END 2024-08-31 23:59 | disposition home or self-care (01) ==
LOC: SCTC 10:37
PROVIDERS: PCP Family Medicine; Referring Provider Family Medicine; Visit Provider Internal Medicine Hematology & Oncology
DX: Z51.11 Encounter for antineoplastic chemotherapy (principal); C18.7 Malignant neoplasm of sigmoid colon; C78.7 Secondary malignant neoplasm of liver and intrahepatic bile duct; Z90.49 Acquired absence of other specified parts of digestive tract
CPT/HCPCS: 36591; 80053; 81001; 82378; 83036; 85025; 96366; 96367; 96368; 96375; 96413; 96415; 96416; 96417; 99213; A4216; J0461; J0640; J1100; J1642; J2405; J7040; J7050; J9190; J9206; Q5126; A9270; G0463

== ENCOUNTER 2024-09-29 10:47 | Outpatient (RCR) | payer MEDICARE, OTHER, MEDICAID, SELFPAY ==
[2024-09-09 09:09] LABS: Collection Type, Urine Voided; Squamous Epithelial Cell,Urine 0 /hpf (0-5)
[2024-09-09 09:17] LABS: Basophils % (Auto) 1 % (0-2.5); Eosinophils # (Auto) 0.1 Thou/mm3 (0.0-0.5); Eosinophils % (Auto) 2 % (0-10); Hematocrit 34.9 % (41.0-53.0); Hemoglobin 11.9 g/dL (13.5-16.0); Immature Granulocytes % (Auto) 0 % (0-0); Immature Granulocytes Auto 0.01 Thou/mm3 (0.00-0.00); Lymphocytes # (Auto) 1.3 Thou/mm3 (1.0-4.8); Lymphocytes % (Auto) 31 % (10-50); Mean Corpuscular HGB Conc 34.1 g/dl (31.0-37.0); Mean Corpuscular Hemoglobin 33.2 pg (25.0-35.0); Mean Corpuscular Volume 98 fL (80-100); Monocytes # (Auto) 0.4 Thou/mm3 (0.0-0.8); Monocytes % (Auto) 10 % (0-12); Neutrophils # (Auto) 2.3 Thou/mm3 (1.8-7.7); Neutrophils % (Auto) 56 % (37-80); Nucleated Red Blood Cell % 0 /100 WBC (0); Platelet Count 148 Thou/mm3 (140-440); RDW Standard Deviation 47.8 fL (35.1-43.9); Red Blood Count 3.58 Miln/mm3 (4.50-5.90); White Blood Count 4.1 Thou/mm3 (3.8-10.6)
[2024-09-09 09:28] LABS: Bilirubin,Urine Negative (Negative); Blood,Urine Negative (Negative); Clarity,Urine Clear (Clear/Hazy); Color,Urine Lt-Yellow (Lt Yel-Yel); Glucose, Urine Negative (Negative); Ketones,Urine Negative (Negative); Leukocyte Esterase,Urine Negative (Negative); Nitrite,Urine Negative (Negative); Protein,Urine Negative (Neg - Trace); RBC,Urine < 1 /hpf (0-3); Specific Gravity,Urine 1.017 (1.001-1.035); Urobilinogen,Urine Negative mg/dL (0.0-1.0); WBC,Urine 1 /hpf (0-5)
[2024-09-09 09:37] LABS: Alanine Aminotransferase 52 U/L (10-49); Albumin, Serum 3.8 gm/dL (3.4-4.8); Albumin/Globulin Ratio 1.5 (1.2-2.2); Alkaline Phosphatase 130 U/L (46-116); Anion Gap 7 (7-16); Aspartate Amino Transferase 47 U/L (0-34); BUN/Creatinine Ratio 12 Ratio (12-20); Bilirubin,Total 0.5 mg/dL (0.3-1.2); Blood Urea Nitrogen 11 mg/dL (9-23); Calcium 8.3 mg/dL (8.3-10.6); Calcium (Corrected) 8.5 mg/dL (8.5-10.1); Carbon Dioxide 23.7 mMol/L (20.0-31.0); Carcinoembryonic Antigen 1.5 ng/mL (0.0-5.0); Chloride 107 mMol/L (98-107); Creatinine (Component) 0.9 mg/dL (0.6-1.3); Globulin 2.6 gm/dL (2.3-3.5); Glucose 186 mg/dL (74-106); Osmolality,Calculated 280 (275-295); Potassium 3.8 mMol/L (3.4-5.1); Sodium 138 mMol/L (136-145); Total Protein 6.4 gm/dL (5.7-8.2); eGFR > 60 See Note
[2024-09-27 08:31] LABS: Collection Type, Urine Voided; Squamous Epithelial Cell,Urine 0 /hpf (0-5); WBC,Urine 0 /hpf (0-5)
[2024-09-27 08:39] LABS: Bilirubin,Urine Negative (Negative); Blood,Urine Negative (Negative); Clarity,Urine Clear (Clear/Hazy); Color,Urine Lt-Yellow (Lt Yel-Yel); Glucose, Urine Negative (Negative); Ketones,Urine Negative (Negative); Leukocyte Esterase,Urine Negative (Negative); Nitrite,Urine Negative (Negative); PH,Urine 5.5 (5.0-7.0); Protein,Urine Negative (Neg - Trace); RBC,Urine < 1 /hpf (0-3); Specific Gravity,Urine 1.021 (1.001-1.035); Urobilinogen,Urine Negative mg/dL (0.0-1.0)
[2024-09-27 08:47] LABS: Basophils % (Auto) 1 % (0-2.5); Eosinophils # (Auto) 0.1 Thou/mm3 (0.0-0.5); Eosinophils % (Auto) 2 % (0-10); Hemoglobin 12.8 g/dL (13.5-16.0); Immature Granulocytes % (Auto) 0 % (0-0); Immature Granulocytes Auto 0.01 Thou/mm3 (0.00-0.00); Lymphocytes # (Auto) 1.4 Thou/mm3 (1.0-4.8); Lymphocytes % (Auto) 34 % (10-50); Mean Corpuscular HGB Conc 34.6 g/dl (31.0-37.0); Mean Corpuscular Hemoglobin 33.4 pg (25.0-35.0); Mean Corpuscular Volume 97 fL (80-100); Monocytes # (Auto) 0.5 Thou/mm3 (0.0-0.8); Monocytes % (Auto) 14 % (0-12); Neutrophils % (Auto) 50 % (37-80); Nucleated Red Blood Cell % 0 /100 WBC (0); Platelet Count 168 Thou/mm3 (140-440); RDW Standard Deviation 49.8 fL (35.1-43.9); Red Blood Count 3.83 Miln/mm3 (4.50-5.90)
[2024-09-27 08:54] LABS: Carcinoembryonic Antigen 1.6 ng/mL (0.0-5.0)
[2024-09-27 08:57] LABS: Alanine Aminotransferase 45 U/L (10-49); Albumin, Serum 4.1 gm/dL (3.4-4.8); Albumin/Globulin Ratio 1.6 (1.2-2.2); Alkaline Phosphatase 124 U/L (46-116); Anion Gap 9 (7-16); Aspartate Amino Transferase 43 U/L (0-34); BUN/Creatinine Ratio 16 Ratio (12-20); Bilirubin,Total 0.6 mg/dL (0.3-1.2); Blood Urea Nitrogen 13 mg/dL (9-23); Calcium 8.4 mg/dL (8.3-10.6); Calcium (Corrected) 8.4 mg/dL (8.5-10.1); Carbon Dioxide 23.4 mMol/L (20.0-31.0); Chloride 106 mMol/L (98-107); Creatinine (Component) 0.8 mg/dL (0.6-1.3); Globulin 2.6 gm/dL (2.3-3.5); Glucose 115 mg/dL (74-106); Osmolality,Calculated 276 (275-295); Potassium 4.1 mMol/L (3.4-5.1); Sodium 138 mMol/L (136-145); Total Protein 6.7 gm/dL (5.7-8.2); eGFR > 60 See Note
== END 2024-10-01 23:59 | disposition home or self-care (01) ==
LOC: SCTC 10:47
PROVIDERS: PCP Family Medicine; Referring Provider Family Medicine; Visit Provider Internal Medicine Hematology & Oncology
DX: Z51.11 Encounter for antineoplastic chemotherapy (principal); C18.7 Malignant neoplasm of sigmoid colon; C78.7 Secondary malignant neoplasm of liver and intrahepatic bile duct; Z90.49 Acquired absence of other specified parts of digestive tract
CPT/HCPCS: 36591; 80053; 81001; 82378; 85025; 96367; 96368; 96375; 96413; 96415; 96416; 96417; A4216; J0461; J0640; J1100; J1642; J2405; J7040; J7050; J9190; J9206; Q5126; A9270

== ENCOUNTER → 2024-10-24 | Outpatient (CLI) | payer MEDICARE, OTHER, MEDICAID, SELFPAY ==
[2024-10-24 10:25] LABS: Collection Type, Urine Clean Catch
[2024-10-24 10:49] LABS: Basophils % (Auto) 0 % (0-2.5); Eosinophils # (Auto) 0.2 Thou/mm3 (0.0-0.5); Eosinophils % (Auto) 3 % (0-10); Hematocrit 38.9 % (41.0-53.0); Immature Granulocytes % (Auto) 0 % (0-0); Immature Granulocytes Auto 0.01 Thou/mm3 (0.00-0.00); Lymphocytes # (Auto) 1.9 Thou/mm3 (1.0-4.8); Lymphocytes % (Auto) 33 % (10-50); Mean Corpuscular HGB Conc 33.4 g/dl (31.0-37.0); Mean Corpuscular Volume 99 fL (80-100); Monocytes # (Auto) 0.7 Thou/mm3 (0.0-0.8); Monocytes % (Auto) 12 % (0-12); Neutrophils # (Auto) 2.9 Thou/mm3 (1.8-7.7); Neutrophils % (Auto) 51 % (37-80); Nucleated Red Blood Cell % 0 /100 WBC (0); Platelet Count 172 Thou/mm3 (140-440); RDW Standard Deviation 50.5 fL (35.1-43.9); Red Blood Count 3.94 Miln/mm3 (4.50-5.90); White Blood Count 5.6 Thou/mm3 (3.8-10.6)
[2024-10-24 10:52] LABS: Bilirubin,Urine Negative (Negative); Blood,Urine Negative (Negative); Clarity,Urine Clear (Clear/Hazy); Color,Urine Lt-Yellow (Lt Yel-Yel); Glucose, Urine Negative (Negative); Ketones,Urine Negative (Negative); Leukocyte Esterase,Urine Negative (Negative); Nitrite,Urine Negative (Negative); PH,Urine 5.5 (5.0-7.0); Protein,Urine Negative (Neg - Trace); RBC,Urine 1 /hpf (0-3); Specific Gravity,Urine 1.025 (1.001-1.035); Squamous Epithelial Cell,Urine < 1 /hpf (0-5); Urobilinogen,Urine Negative mg/dL (0.0-1.0); WBC,Urine < 1 /hpf (0-5)
[2024-10-24 11:05] LABS: Alanine Aminotransferase 64 U/L (10-49); Albumin, Serum 4.2 gm/dL (3.4-4.8); Albumin/Globulin Ratio 1.6 (1.2-2.2); Alkaline Phosphatase 119 U/L (46-116); Anion Gap 8 (7-16); Aspartate Amino Transferase 54 U/L (0-34); BUN/Creatinine Ratio 14 Ratio (12-20); Bilirubin,Total 0.5 mg/dL (0.3-1.2); Blood Urea Nitrogen 14 mg/dL (9-23); Calcium 9.6 mg/dL (8.3-10.6); Calcium (Corrected) 9.6 mg/dL (8.5-10.1); Carbon Dioxide 23.6 mMol/L (20.0-31.0); Chloride 103 mMol/L (98-107); Globulin 2.6 gm/dL (2.3-3.5); Glucose 179 mg/dL (74-106); Osmolality,Calculated 274 (275-295); Potassium 4.6 mMol/L (3.4-5.1); Sodium 135 mMol/L (136-145); Total Protein 6.8 gm/dL (5.7-8.2); eGFR > 60 See Note
[2024-10-24 11:11] LABS: Carcinoembryonic Antigen 1.4 ng/mL (0.0-5.0)
== END | disposition home or self-care (01) ==
LOC: SCTO 09:20
PROVIDERS: PCP Family Medicine; Referring Provider Internal Medicine Hematology & Oncology; Visit Provider Internal Medicine Hematology & Oncology
DX: C18.7 Malignant neoplasm of sigmoid colon (principal)
CPT/HCPCS: 36415; 80053; 81001; 82378; 85025

== ENCOUNTER 2024-10-27 10:44 | Outpatient (RCR) | payer MEDICARE, OTHER, MEDICAID, SELFPAY ==
--- NOTE | 2024-10-04 05:59 | CTCFLWUP_ITS ---
Patient: TED LIAO : 1950 Page 5 of 5 FOLLOW UP NOTE DATE OF SERVICE: 10/03/2024 NAME: TED LIAO ACCOUNT: [id number] : 1950 AGE: 74 INTERVAL HISTORY: Subjective: Chief Complaint Follow-up for colon cancer treatment and monitoring History of Present Illness Ted Liao is a 74-year-old male with a history of colon cancer who recently underwent radiofrequency ablation (RFA) to his liver. He completed 11 cycles of chemotherapy with FOLFIRI and is scheduled to finish his 12th cycle on October 25. Mr. Liao reports feeling good overall and denies experiencing any pain, even post-surgeries. He mentions that previous medication caused dryness and pain in his feet, but he has been informed that the new medication will be different. The patient has been adherent to his treatment regimen, completing 11 cycles of chemotherapy and preparing for the final cycle. Recent healthcare interactions include an MRI at the [facility] and a CT scan on September 19. The patient is currently awaiting new Mitchell test results to assess the effectiveness of his recent liver intervention. These results will guide future treatment decisions, with a potential switch to Lonsurf and bevacizumab if the test remains positive. Medications and Supplements - FOLFIRI - Last administered in September for liver intervention. - Lonsurf - Has at home. Will start on November 08. - Bevacizumab - Will continue - Unnamed previous medication - Caused dryness and pain in feet. - Discontinued. Review of Systems General: Negative for pain. Musculoskeletal: Positive for foot pain (previous medication). Objective: Laboratory, Imaging, and Diagnostic Test Results - CT scan (September 19, 2024): Presumed post-treatment changes in the hepatic lobes without residual or recurrent neoplasm. - Mitchell test (previous): 33.40 (positive) - Tumor markers: Always normal (specific values not provided) ONCOLOGY HISTORY: DIAGNOSIS: Malignant neoplasm of sigmoid colon [ICD10] C18.7 DATE OF DIAGNOSIS: 05/27/2021 STAGE/TNM: Stage 4 TREATMENT HISTORY: Care?Plan Start?Date Cycle Day Intent CapOX?adj?T3N1?3mon?4?cycles 05/27/2021 1 21 Curative?(adjuvant) mFOLFOX-6?+?Bevacizumab?5?mg/kg 08/27/2021 1 14 Palliative Bevacizumab?7.5?mg/kg?-?Met 04/02/2022 1 21 Palliative FOLFIRI?-?5-FU?400?and?2400?CIV,?LVR?400,?Irinotecan?180 07/06/2023 1 28 Palliative Bevacizumab?5mg/kg 09/21/2023 1 28 Palliative Bevacizumab?5mg/kg 08/29/2024 1 28 Palliative Recurrence in liver s/p RFA while on FOLFIRI Lonsurf started on 11/01/2024 HISTORY OF PRESENT ILLNESS: Patient is 74-year-old male [place]-speaking, communication helped with by medical assistant prn Ms. Garsia. 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 S/p sigmoid colectomy in April 2021. Patient was on modified FOLFOX plus bevacizumab between 08/28/19992021 till March 2022 at that time patient progressed and was started on FOLFIRI and Avastin starting July 06, 2023. On November 20, 2023 outside MRI showed 2 small right lobe liver lesions however PET was negative. Right liver biopsy confirmed metastatic adeno cell carcinoma cons istent with a colorectal cancer. Patient have been on chemotherapy since he was initially diagnosed with stage III colorectal cancer in 2020. Patient's last chemotherapy was on February 02, 2024. Patient was referred to [facility] for possible resection of the liver lesion. Patient is here to inform me that he already have appointment with the surgeon and doing well. He need to continue holding his therapy for at least 6 weeks before resection can be done. 07/11/2024nterior mildly enhancing right lobe liver lesion 5.6 cm compared to 1.[address] abdomen September 30, 2023 and compared to 14 mm on MR abdomen November 20, 2023 Posterior right lobe liver lesion measures 21 mm compared to [address] abdomen September 30, 2023 -Patient had RFA done on 07/21/2024. OTHER MEDICAL HISTORY/CONDITIONS: FAMILY HISTORY: SOCIAL HISTORY: MEDICATIONS: 1. amlodipine - 5 mg 1 tab Daily 2. dutasteride - 0.5 mg 1 Capsule Daily 3. mouthwashes - As directed 4. ramipriL - 10 mg 1 Capsule Daily 5. simvastatin - 20 mg 1 tab Daily 6. tamsulosin - 0.4 mg 1 Capsule Daily Medications Last Reconciled by Thea Leblanc MA on 10/03/2024 ALLERGIES: No Known Drug Allergies REVIEW OF SYSTEMS: A complete 14-point review of systems was performed and is negative except as noted in interval history. PHYSICAL EXAMINATION: VITAL SIGNS: Temperature?97.6, B/P?150/79, Oxygen?Saturation?96% Weight?191?lbs (Change?since?09/29/24:?-4?lbs) PAIN: 0 - No pain ECOG Performance Status: 0 - Asymptomatic and fully active GENERAL APPEARANCE: Appears well, in no apparent distress, appropriately interactive. HEENT: Normocephalic, no temporal wasting, normal conjunctiva, no scleral icterus, normal hearing, lips without lesions, neck normal range of motion. CARDIOVASCULAR: Not assessed. PULMONARY: Normal respiratory effort, no respiratory distress or use of accessory muscles, speaking in full sentences, no tachypnea. EXTREMITIES: No pedal edema or cyanosis. SKIN: Normal skin appearance. NEUROLOGIC: Alert and oriented x4. PSHYCHIATRIC: Appropriate affect, mood normal, behavior normal, intact thought and speech. LABORATORY DATA: I have personally reviewed and interpreted each of the patient?s relevant lab tests, abnormal findings are below: Date 09/09/24 09/27/24 ??WHITE?BLOOD?COUNT?(Thou/mm3) ? 4.0 ??RED?BLOOD?COUNT?(Miln/mm3) ? 3.83?L ??HEMOGLOBIN?(gm/dl) ? 12.8?L ??HEMATOCRIT?(%) ? 37.0?L ??PLATELET?COUNT?(Thou/mm3) ? 168 ??NEUTROPHILS?%,?AUTO?(%) ? 50 ??LYMPH?%,?AUTO?(%) ? 34 ??NEUTROPHILS,?AUTO?(Thou/mm3) ? 2.0 ??GLUCOSE,RANDOM?(mg/dL) 186?H 115?H ??BLOOD?UREA?NITROGEN?(mg/dL) 11 13 ??CREATININE?(mg/dL) 0.90 0.80 ??SODIUM?(mmol/L) 138 138 ??POTASSIUM?(mmol/L) 3.8 4.1 ??CHLORIDE?(mmol/L) 107 106 ??CrCl?(CandG)?(ml/min) 76.78 85.95 ??AST/SGOT?(Unit/L) 47?H 43?H ??ALT/SGPT?(Unit/L) 52?H 45 ??ALKALINE?PHOSPHATASE?(Unit/L) 130?H 124?H ??BILIRUBIN,?TOTAL?(mg/dL) 0.5 0.6 ??PROTEIN?TOTAL?(gm/dl) 6.4 6.7 ??ALBUMIN,?SERUM?(gm/dl) 3.8 4.1 ??GLOBULIN?(gm/dl) 2.6 2.6 ??ALBUMIN/GLOBULIN?RATIO 1.5 1.6 ??CALCIUM,?SERUM?(mg/dL) 8.3 8.4 ??CALCIUM?SERUM?(CORRECTED)?(mg/dL) 8.5 8.4?L ??CEA?(O*)?(ng/ml) ? 1.6 ASSESSMENT/PLAN: Assessment and Plan: Ted Liao, a 74-year-old male with a history of colon cancer, presents for follow-up after liver RFA and ongoing chemotherapy. Colon cancer with liver metastasis Assessment: Patient underwent RFA to the liver and has been on FOLFIRI chemotherapy. Recent CT scan on September 19 showed presumed post-treatment changes in the hepatic lobes without evidence of residual or recurrent neoplasm. Previous Mitchell test was positive at 33.40, awaiting new results post-intervent ion. Tumor markers have consistently been normal. Patient reports feeling good with no pain, even post-surgeries. He has completed 11 cycles of chemotherapy and is scheduled for the 12th cycle. Plan: - Complete 12th cycle of current chemotherapy regimen, ending on October 25 - Await new Mitchell test results - If Mitchell results remain positive, plan to switch to Lonsurf and bevacizumab starting November 08 - Continue surveillance imaging as recommended - Follow-up after completion of current chemotherapy regimen and receipt of Mitchell results to determine next steps in treatment Medication management Assessment: Patient has been provided with Lonsurf and plan is to continue Lonsurf along with bevacizumab once completing FOLFIRI and Elvi for this cycle. Patient's liver lead came up even when patient was on FOLFIRI and Elvi.- Hold new medication (Lonsurf) until after current chemotherapy completion and Mitchell results are available - If indicated, start new medication regimen on November 08 - Patient to bring new medication to next chemotherapy session for verification - Monitor for side effects and educate patient on potential differences from previous chemotherapy Stage IV colon cancer with liver metastatic disease Status post colectomy followed by adjuvant therapy Initially treated with FOLFOX with bevacizumab Progressed and have been on FOLFIRI with bevacizumab Found with new liver lesions s/p ir ablation ORDERS: Order # Description [id number] Follow Up 4 Week [id number] RETURN TO CLINIC: BILLING AND COMPLIANCE: I reviewed external records from providers outside my specialty as summarized above. I spent a total of 50 minutes on this patient?s care on the day of their visit excluding time spent related to any billed procedures. This time includes time spent with the patient as well as time spent documenting in the medical record, reviewing patients records and tests, obtaining history, placing orders, communicating with other healthcare professionals, counseling the patient, family or caregiver, and/or care coordination for the diagnoses above. Electronically Signed by: {Object.Sanct_ID*PnP.NameFL@M}, {Object.Sanct_ID*PnP.Suffix@U} D: {Object.Sanct_Date} T: {Object.Sanct_Time} CC: PCP: Eb Haney Referring: Eb Haney This document was completed utilizing speech recognition software. Grammatical errors, random word insertions, pronoun errors, and incomplete sentences are an occasional consequence of this system due to software limitations, ambient noise, and hardware issues. Any formal questions or concerns about the content, text or information contained within the body of this dictation should be directly addressed to the provider for clarification.
[2024-10-10 11:35] LABS: Collection Type, Urine Voided
[2024-10-10 11:37] LABS: Basophils % (Auto) 0 % (0-2.5); Eosinophils # (Auto) 0.1 Thou/mm3 (0.0-0.5); Eosinophils % (Auto) 2 % (0-10); Hematocrit 34.3 % (41.0-53.0); Hemoglobin 12.1 g/dL (13.5-16.0); Immature Granulocytes % (Auto) 0 % (0-0); Lymphocytes # (Auto) 1.5 Thou/mm3 (1.0-4.8); Lymphocytes % (Auto) 31 % (10-50); Mean Corpuscular HGB Conc 35.3 g/dl (31.0-37.0); Mean Corpuscular Hemoglobin 33.4 pg (25.0-35.0); Mean Corpuscular Volume 95 fL (80-100); Monocytes # (Auto) 0.5 Thou/mm3 (0.0-0.8); Monocytes % (Auto) 10 % (0-12); Neutrophils # (Auto) 2.8 Thou/mm3 (1.8-7.7); Neutrophils % (Auto) 57 % (37-80); Nucleated Red Blood Cell % 0 /100 WBC (0); Platelet Count 154 Thou/mm3 (140-440); RDW Standard Deviation 48.3 fL (35.1-43.9); Red Blood Count 3.62 Miln/mm3 (4.50-5.90); White Blood Count 4.9 Thou/mm3 (3.8-10.6)
[2024-10-10 11:54] LABS: Alanine Aminotransferase 60 U/L (10-49); Albumin, Serum 3.8 gm/dL (3.4-4.8); Albumin/Globulin Ratio 1.5 (1.2-2.2); Alkaline Phosphatase 123 U/L (46-116); Anion Gap 10 (7-16); BUN/Creatinine Ratio 15 Ratio (12-20); Bilirubin,Total 0.4 mg/dL (0.3-1.2); Blood Urea Nitrogen 16 mg/dL (9-23); Calcium 8.5 mg/dL (8.3-10.6); Calcium (Corrected) 8.7 mg/dL (8.5-10.1); Carbon Dioxide 24.1 mMol/L (20.0-31.0); Chloride 107 mMol/L (98-107); Creatinine (Component) 1.1 mg/dL (0.6-1.3); Globulin 2.5 gm/dL (2.3-3.5); Glucose 182 mg/dL (74-106); Osmolality,Calculated 287 (275-295); Sodium 141 mMol/L (136-145); Total Protein 6.3 gm/dL (5.7-8.2); eGFR > 60 See Note
[2024-10-10 11:56] LABS: Carcinoembryonic Antigen 1.4 ng/mL (0.0-5.0)
[2024-10-10 13:00] LABS: Bilirubin,Urine Negative (Negative); Blood,Urine Negative (Negative); Color,Urine Yellow (Lt Yel-Yel); Glucose, Urine Negative (Negative); Ketones,Urine Negative (Negative); Leukocyte Esterase,Urine Negative (Negative); Nitrite,Urine Negative (Negative); PH,Urine 5.5 (5.0-7.0); Protein,Urine Negative (Neg - Trace); RBC,Urine 1 /hpf (0-3); Specific Gravity,Urine 1.025 (1.001-1.035); Squamous Epithelial Cell,Urine 1 /hpf (0-5); Transitional Epi Cells,Urine < 1 /hpf (0-5); Urobilinogen,Urine Negative mg/dL (0.0-1.0); WBC,Urine 1 /hpf (0-5)
[2024-10-10 14:15] LABS: Clarity,Urine Hazy (Clear/Hazy)
[2024-10-11 08:47] LABS: Aspartate Amino Transferase 50 U/L (0-34)
== END 2024-10-31 23:59 | disposition home or self-care (01) ==
LOC: SCTC 10:44
PROVIDERS: PCP Family Medicine; Referring Provider Family Medicine; Visit Provider Internal Medicine Hematology & Oncology
DX: Z51.11 Encounter for antineoplastic chemotherapy (principal); C18.7 Malignant neoplasm of sigmoid colon; C78.7 Secondary malignant neoplasm of liver and intrahepatic bile duct
CPT/HCPCS: 36591; 80053; 81001; 82378; 84450; 85025; 96367; 96368; 96372; 96375; 96411; 96413; 96415; 96416; 96417; 99213; A4216; J0461; J0640; J1100; J1642; J2405; J2469; J7040; J7050; J9190; J9206; Q5126; A9270; G0463

== ENCOUNTER 2024-11-22 06:52 | Outpatient (RCR) | payer MEDICARE, OTHER, MEDICAID, SELFPAY ==
[2024-11-07 14:44] LABS: Collection Type, Urine Voided
[2024-11-07 14:50] LABS: Basophils # (Auto) 0.0 Thou/mm3 (0.0-0.2); Basophils % (Auto) 0 % (0-2.5); Eosinophils # (Auto) 0.1 Thou/mm3 (0.0-0.5); Eosinophils % (Auto) 3 % (0-10); Hematocrit 36.5 % (41.0-53.0); Hemoglobin 12.7 g/dL (13.5-16.0); Immature Granulocytes Auto 0.01 Thou/mm3 (0.00-0.00); Lymphocytes # (Auto) 1.3 Thou/mm3 (1.0-4.8); Lymphocytes % (Auto) 28 % (10-50); Mean Corpuscular HGB Conc 34.8 g/dl (31.0-37.0); Mean Corpuscular Hemoglobin 34.0 pg (25.0-35.0); Mean Corpuscular Volume 98 fL (80-100); Monocytes # (Auto) 0.8 Thou/mm3 (0.0-0.8); Monocytes % (Auto) 16 % (0-12); Neutrophils # (Auto) 2.4 Thou/mm3 (1.8-7.7); Neutrophils % (Auto) 52 % (37-80); Nucleated Red Blood Cell # 0.00 Thou/mm3 (0.00-0.00); Nucleated Red Blood Cell % 0 /100 WBC (0); Platelet Count 187 Thou/mm3 (140-440); RDW Standard Deviation 51.1 fL (35.1-43.9); Red Blood Count 3.73 Miln/mm3 (4.50-5.90); White Blood Count 4.7 Thou/mm3 (3.8-10.6)
[2024-11-07 15:01] LABS: Bilirubin,Urine Negative (Negative); Blood,Urine Negative (Negative); Color,Urine Yellow (Lt Yel-Yel); Glucose, Urine Negative (Negative); Ketones,Urine Negative (Negative); Leukocyte Esterase,Urine Negative (Negative); Nitrite,Urine Negative (Negative); PH,Urine 6.0 (5.0-7.0); Protein,Urine Negative (Neg - Trace); RBC,Urine 1 /hpf (0-3); Specific Gravity,Urine 1.028 (1.001-1.035); Squamous Epithelial Cell,Urine < 1 /hpf (0-5); Urobilinogen,Urine 3.0 mg/dL (0.0-1.0); WBC,Urine < 1 /hpf (0-5)
[2024-11-07 15:05] LABS: Clarity,Urine Hazy (Clear/Hazy)
[2024-11-07 15:06] LABS: Alanine Aminotransferase 48 U/L (10-49); Albumin, Serum 4.1 gm/dL (3.4-4.8); Albumin/Globulin Ratio 1.5 (1.2-2.2); Alkaline Phosphatase 115 U/L (46-116); Anion Gap 9 (7-16); Aspartate Amino Transferase 48 U/L (0-34); BUN/Creatinine Ratio 12 Ratio (12-20); Bilirubin,Total 0.6 mg/dL (0.3-1.2); Blood Urea Nitrogen 12 mg/dL (9-23); Calcium 8.9 mg/dL (8.3-10.6); Calcium (Corrected) 8.9 mg/dL (8.5-10.1); Carbon Dioxide 25.0 mMol/L (20.0-31.0); Chloride 105 mMol/L (98-107); Creatinine (Component) 1.0 mg/dL (0.6-1.3); Globulin 2.8 gm/dL (2.3-3.5); Glucose 98 mg/dL (74-106); Osmolality,Calculated 277 (275-295); Potassium 4.3 mMol/L (3.4-5.1); Sodium 139 mMol/L (136-145); Total Protein 6.9 gm/dL (5.7-8.2); eGFR > 60 See Note
[2024-11-07 15:19] LABS: Carcinoembryonic Antigen 1.7 ng/mL (0.0-5.0)
--- NOTE | 2024-11-20 18:01 | CTCFLWUP_ITS ---
Patient: TED LIAO : 1950 Page 2 of 3 FOLLOW UP NOTE DATE OF SERVICE: 11/09/2024 NAME: TED LIAO ACCOUNT: [id number] : 1950 AGE: 74 INTERVAL HISTORY: Subjective: Chief Complaint Follow-up for colon cancer treatment and monitoring History of Present Illness Ted Liao is a 74-year-old male with a history of colon cancer who recently underwent radiofrequency ablation (RFA) to his liver. He completed 11 cycles of chemotherapy with FOLFIRI and is scheduled to finish his 12th cycle on October 25. Mr. Liao reports feeling good overall and denies experiencing any pain, even post-surgeries. He mentions that previous medication caused dryness and pain in his feet, but he has been informed that the new medication will be different. The patient has been adherent to his treatment regimen, completing 11 cycles of chemotherapy and preparing for the final cycle. Recent healthcare interactions include an MRI at the [facility] and a CT scan on September 19. The patient is currently awaiting new Mitchell test results to assess the effectiveness of his recent liver intervention. These results will guide future treatment decisions, with a potential switch to Lonsurf and bevacizumab if the test remains positive. Medications and Supplements - FOLFIRI - Last administered in September for liver intervention. - Lonsurf - Has at home. Will start on November 08. - Bevacizumab - Will continue - Unnamed previous medication - Caused dryness and pain in feet. - Discontinued. Review of Systems General: Negative for pain. Musculoskeletal: Positive for foot pain (previous medication). Objective: Laboratory, Imaging, and Diagnostic Test Results - CT scan (September 19, 2024): Presumed post-treatment changes in the hepatic lobes without residual or recurrent neoplasm. - Mitchell test (previous): 33.40 (positive) - Tumor markers: Always normal (specific values not provided) ONCOLOGY HISTORY:?[facility] Oncology Hx? DIAGNOSIS: Malignant neoplasm of sigmoid colon [ICD10] C18.7 DATE OF DIAGNOSIS: 05/27/2021 STAGE/TNM: Stage 4 TREATMENT HISTORY: Care?Plan Start?Date Cycle Day Intent CapOX?adj?T3N1?3mon?4?cycles 05/27/2021 1 21 Curative?(adjuvant) mFOLFOX-6?+?Bevacizumab?5?mg/kg 08/27/2021 1 14 Palliative Bevacizumab?7.5?mg/kg?-?Met 04/02/2022 1 21 Palliative FOLFIRI?-?5-FU?400?and?2400?CIV,?LVR?400,?Irinotecan?180 07/06/2023 1 28 Palliative Bevacizumab?5mg/kg 09/21/2023 1 28 Palliative Bevacizumab?5mg/kg 08/29/2024 1 28 Palliative HISTORY OF PRESENT ILLNESS: Patient is 74-year-old male Azerbaijani-speaking, communication helped with by hospital medical assistant Ms. Garsia. 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 S/p sigmoid colectomy in April 2021. Patient was on modified FOLFOX plus bevacizumab between 08/28/19992021 till March 2022 at that time patient progressed and was started on FOLFIRI and Avastin starting July 06, 2023. On November 20, 2023 outside MRI showed 2 small right lobe liver lesions however PET was negative. Right liver biopsy confirmed metastatic adeno cell carcinoma cons istent with a colorectal cancer. Patient have been on chemotherapy since he was initially diagnosed with stage III colorectal cancer in 2020. Patient's last chemotherapy was on February 02, 2024. Patient was referred to [facility] for possible resection of the liver lesion. Patient is here to inform me that he already have appointment with the surgeon and doing well. He need to continue holding his therapy for at least 6 weeks before resection can be done. 07/11/2024nterior mildly enhancing right lobe liver lesion 5.6 cm compared to 1.[address] abdomen September 30, 2023 and compared to 14 mm on MR abdomen November 20, 2023 Posterior right lobe liver lesion measures 21 mm compared to [address] abdomen September 30, 2023 -Patient had RFA done on 07/21/2024. OTHER MEDICAL HISTORY/CONDITIONS: FAMILY HISTORY: ?Clone Family Hx? SOCIAL HISTORY: MEDICATIONS: 1. amlodipine - 5 mg 1 tab Daily 2. dutasteride - 0.5 mg 1 Capsule Daily 3. Lonsurf - 20-8.19 mg 35 mg/m*2 68.6 mg twice Daily 4. Lonsurf - 15-6.14 mg 3 tab twice daily 5. mouthwashes - As directed 6. ramipriL - 10 mg 1 Capsule Daily 7. simvastatin - 20 mg 1 tab Daily 8. tamsulosin - 0.4 mg 1 Capsule Daily?Palabra Meds? Medications Last Reconciled by Cristina Taylor MA on 11/09/2024 ALLERGIES: No Known Drug Allergies REVIEW OF SYSTEMS: A complete 14-point review of systems was performed and is negative except as noted in interval history. PHYSICAL EXAMINATION:?CloneBlock PE? VITAL SIGNS: Temperature?99.3, B/P?149/79, Oxygen?Saturation?96% Weight?191?lbs (Change?since?11/08/24:?2.2?lbs) PAIN: 0 - No pain ECOG Performance Status: 0 - Asymptomatic and fully active GENERAL APPEARANCE: Appears well, in no apparent distress, appropriately interactive. HEENT: Normocephalic, no temporal wasting, normal conjunctiva, no scleral icterus, normal hearing, lips without lesions, neck normal range of motion. CARDIOVASCULAR: Not assessed. PULMONARY: Normal respiratory effort, no respiratory distress or use of accessory muscles, speaking in full sentences, no tachypnea. EXTREMITIES: No pedal edema or cyanosis. SKIN: Normal skin appearance. NEUROLOGIC: Alert and oriented x4. PSHYCHIATRIC: Appropriate affect, mood normal, behavior normal, intact thought and speech. LABORATORY DATA: I have personally reviewed and interpreted each of the patient?s relevant lab tests, abnormal findings are below: Date 10/24/24 11/07/24 ??WHITE?BLOOD?COUNT?(Thou/mm3) 5.6 4.7 ??RED?BLOOD?COUNT?(Miln/mm3) 3.94?L 3.73?L ??HEMOGLOBIN?(gm/dl) 13.0?L 12.7?L ??HEMATOCRIT?(%) 38.9?L 36.5?L ??PLATELET?COUNT?(Thou/mm3) 172 187 ??NEUTROPHILS?%,?AUTO?(%) 51 52 ??LYMPH?%,?AUTO?(%) 33 28 ??NEUTROPHILS,?AUTO?(Thou/mm3) 2.9 2.4 ??GLUCOSE,RANDOM?(mg/dL) ? 98 ??BLOOD?UREA?NITROGEN?(mg/dL) ? 12 ??CREATININE?(mg/dL) ? 1.00 ??SODIUM?(mmol/L) ? 139 ??POTASSIUM?(mmol/L) ? 4.3 ??CHLORIDE?(mmol/L) ? 105 ??CrCl?(CandG)?(ml/min) ? 68.69 ??AST/SGOT?(Unit/L) ? 48?H ??ALT/SGPT?(Unit/L) ? 48 ??ALKALINE?PHOSPHATASE?(Unit/L) ? 115 ??BILIRUBIN,?TOTAL?(mg/dL) ? 0.6 ??PROTEIN?TOTAL?(gm/dl) ? 6.9 ??ALBUMIN,?SERUM?(gm/dl) ? 4.1 ??GLOBULIN?(gm/dl) ? 2.8 ??ALBUMIN/GLOBULIN?RATIO ? 1.5 ??CALCIUM,?SERUM?(mg/dL) ? 8.9 ??CALCIUM?SERUM?(CORRECTED)?(mg/dL) ? 8.9 ??CEA?(O*)?(ng/ml) ? 1.7 ASSESSMENT/PLAN:?Mike Salas Assessment/Plan? Assessment and Plan: Ted Liao, a 74-year-old male with a history of colon cancer, presents for follow-up after liver RFA and ongoing chemotherapy. Colon cancer with liver metastasis Assessment: Patient underwent RFA to the liver and has been on FOLFIRI chemotherapy. Recent CT scan on September 19 showed presumed post-treatment changes in the hepatic lobes without evidence of residual or recurrent neoplasm. Previous Mitchell test was positive at 33.40, awaiting new results post-intervent ion. Tumor markers have consistently been normal. Patient reports feeling good with no pain, even post-surgeries. He has completed 11 cycles of chemotherapy and is scheduled for the 12th cycle. Plan: - Complete 12th cycle of current chemotherapy regimen, ending on October 25 - Await new Mitchell test results - If Mitchell results remain positive, plan to switch to Lonsurf and bevacizumab starting November 08 - Continue surveillance imaging as recommended - Follow-up after completion of current chemotherapy regimen and receipt of Mitchell results to determine next steps in treatment Medication management Assessment: Patient has been provided with Lonsurf and plan is to continue Lonsurf along with bevacizumab once completing FOLFIRI and Elvi for this cycle. Patient's liver lead came up even when patient was on FOLFIRI and Elvi.- Hold new medication (Lonsurf) until after current chemotherapy completion and Mitchell results are available - If indicated, start new medication regimen on November 08 - Patient to bring new medication to next chemotherapy session for verification - Monitor for side effects and educate patient on potential differences from previous chemotherapy Stage IV colon cancer with liver metastatic disease Status post colectomy followed by adjuvant therapy Initially treated with FOLFOX with bevacizumab Progressed and have been on FOLFIRI with bevacizumab Found with new liver lesions s/p ir ablation ORDERS: Order # Description [id number] Infusion 2 Hours [id number] CBC [id number] Lab Appointment [id number] Infusion 4 Hours [id number] Comprehensive Metabolic Panel - 12 + CBC with Auto Diff + MD Follow Up 2 Months [id number] Discontinue CIV Pump [id number] CBC + Comprehensive Metabolic Panel [id number] Lab Appointment RETURN TO CLINIC: I reviewed the diagnosis, prognosis, and recommended treatment/procedure options with the patient (and/or their legal parts representative), including the potential benefits, risks, side effects and alternative therapies. We also discussed the option of no treatment and the possibility of clinical trial participation, if applicable. All questions were addressed, and they demonstrated understanding. They provided informed consent to proceed with the proposed plan of care. BILLING AND COMPLIANCE: I reviewed external records from providers outside my specialty as summarized above. I spent a total of 50 minutes on this patient?s care on the day of their visit excluding time spent related to any billed procedures. This time includes time spent with the patient as well as time spent documenting in the medical record, reviewing patients records and tests, obtaining history, placing orders, communicating with other healthcare professionals, counseling the patient, family or caregiver, and/or care coordination for the diagnoses above. Electronically Signed by: Amado Salas MD T: 5:59 PM CC: PCP: Eb Haney Referring: Eb Haney This document was completed utilizing speech recognition software. Grammatical errors, random word insertions, pronoun errors, and incomplete sentences are an occasional consequence of this system due to software limitations, ambient noise, and hardware issues. Any formal questions or concerns about the content, text or information contained within the body of this dictation should be directly addressed to the provider for clarification.
[2024-11-21 12:24] LABS: Collection Type, Urine Voided; Squamous Epithelial Cell,Urine 0 /hpf (0-5)
[2024-11-21 12:31] LABS: Basophils # (Auto) 0.0 Thou/mm3 (0.0-0.2); Basophils % (Auto) 0 % (0-2.5); Eosinophils # (Auto) 0.0 Thou/mm3 (0.0-0.5); Eosinophils % (Auto) 1 % (0-10); Hematocrit 31.7 % (41.0-53.0); Hemoglobin 10.9 g/dL (13.5-16.0); Immature Granulocytes Auto 0.03 Thou/mm3 (0.00-0.00); Lymphocytes # (Auto) 0.9 Thou/mm3 (1.0-4.8); Lymphocytes % (Auto) 19 % (10-50); Mean Corpuscular HGB Conc 34.4 g/dl (31.0-37.0); Mean Corpuscular Hemoglobin 32.5 pg (25.0-35.0); Mean Corpuscular Volume 95 fL (80-100); Monocytes # (Auto) 0.2 Thou/mm3 (0.0-0.8); Monocytes % (Auto) 5 % (0-12); Neutrophils # (Auto) 3.3 Thou/mm3 (1.8-7.7); Neutrophils % (Auto) 74 % (37-80); Nucleated Red Blood Cell # 0.00 Thou/mm3 (0.00-0.00); Nucleated Red Blood Cell % 0 /100 WBC (0); Platelet Count 165 Thou/mm3 (140-440); RDW Standard Deviation 48.5 fL (35.1-43.9); Red Blood Count 3.35 Miln/mm3 (4.50-5.90); White Blood Count 4.5 Thou/mm3 (3.8-10.6)
[2024-11-21 12:49] LABS: Alanine Aminotransferase 36 U/L (10-49); Albumin, Serum 3.9 gm/dL (3.4-4.8); Albumin/Globulin Ratio 1.4 (1.2-2.2); Alkaline Phosphatase 96 U/L (46-116); Anion Gap 11 (7-16); Aspartate Amino Transferase 44 U/L (0-34); BUN/Creatinine Ratio 16 Ratio (12-20); Bilirubin,Total 0.7 mg/dL (0.3-1.2); Blood Urea Nitrogen 13 mg/dL (9-23); Calcium 8.6 mg/dL (8.3-10.6); Calcium (Corrected) 8.7 mg/dL (8.5-10.1); Carbon Dioxide 23.5 mMol/L (20.0-31.0); Chloride 104 mMol/L (98-107); Creatinine (Component) 0.8 mg/dL (0.6-1.3); Globulin 2.7 gm/dL (2.3-3.5); Glucose 101 mg/dL (74-106); Osmolality,Calculated 275 (275-295); Potassium 4.0 mMol/L (3.4-5.1); Sodium 138 mMol/L (136-145); Total Protein 6.6 gm/dL (5.7-8.2); eGFR > 60 See Note
[2024-11-21 12:50] LABS: Carcinoembryonic Antigen 2.0 ng/mL (0.0-5.0)
[2024-11-21 13:13] LABS: Bilirubin,Urine Negative (Negative); Blood,Urine Negative (Negative); Glucose, Urine Negative (Negative); Ketones,Urine Negative (Negative); Leukocyte Esterase,Urine Negative (Negative); Nitrite,Urine Negative (Negative); PH,Urine 6.0 (5.0-7.0); Protein,Urine Trace (Neg - Trace); RBC,Urine 2 /hpf (0-3); Specific Gravity,Urine 1.025 (1.001-1.035); Urobilinogen,Urine Negative mg/dL (0.0-1.0); WBC,Urine 1 /hpf (0-5)
[2024-11-21 13:14] LABS: Clarity,Urine Hazy (Clear/Hazy); Color,Urine Yellow (Lt Yel-Yel); Sperm,Urine Present
== END 2024-12-01 23:59 | disposition home or self-care (01) ==
LOC: SCTC 06:52
PROVIDERS: PCP Family Medicine; Referring Provider Family Medicine; Visit Provider Internal Medicine Hematology & Oncology
DX: Z51.11 Encounter for antineoplastic chemotherapy (principal); C18.7 Malignant neoplasm of sigmoid colon; C78.7 Secondary malignant neoplasm of liver and intrahepatic bile duct
CPT/HCPCS: 36591; 80053; 81001; 82378; 85025; 96413; 99213; A4216; J1642; J7040; J7050; Q5126; G0463

== ENCOUNTER 2024-12-20 06:52 | Outpatient (RCR) | payer MEDICARE, OTHER, MEDICAID, SELFPAY ==
[2024-12-05 12:10] LABS: Collection Type, Urine Voided
[2024-12-05 12:17] LABS: Basophils # (Auto) 0.0 Thou/mm3 (0.0-0.2); Basophils % (Auto) 1 % (0-2.5); Eosinophils # (Auto) 0.0 Thou/mm3 (0.0-0.5); Eosinophils % (Auto) 1 % (0-10); Hematocrit 32.4 % (41.0-53.0); Hemoglobin 11.0 g/dL (13.5-16.0); Immature Granulocytes Auto 0.01 Thou/mm3 (0.00-0.00); Lymphocytes # (Auto) 1.1 Thou/mm3 (1.0-4.8); Lymphocytes % (Auto) 40 % (10-50); Mean Corpuscular HGB Conc 34.0 g/dl (31.0-37.0); Mean Corpuscular Hemoglobin 34.3 pg (25.0-35.0); Mean Corpuscular Volume 101 fL (80-100); Monocytes # (Auto) 0.6 Thou/mm3 (0.0-0.8); Monocytes % (Auto) 22 % (0-12); Neutrophils # (Auto) 1.0 Thou/mm3 (1.8-7.7); Neutrophils % (Auto) 35 % (37-80); Nucleated Red Blood Cell # 0.00 Thou/mm3 (0.00-0.00); Nucleated Red Blood Cell % 0 /100 WBC (0); Platelet Count 182 Thou/mm3 (140-440); RDW Standard Deviation 59.7 fL (35.1-43.9); Red Blood Count 3.21 Miln/mm3 (4.50-5.90)
[2024-12-05 12:31] LABS: White Blood Count 2.7 Thou/mm3 (3.8-10.6)
[2024-12-05 12:44] LABS: Bilirubin,Urine Negative (Negative); Blood,Urine Negative (Negative); Clarity,Urine Turbid (Clear/Hazy); Color,Urine Yellow (Lt Yel-Yel); Glucose, Urine Negative (Negative); Granular Casts,Urine < 1 /hpf (0-1); Hyaline Casts,Urine < 1 /hpf (0-1); Ketones,Urine Negative (Negative); Leukocyte Esterase,Urine Negative (Negative); Nitrite,Urine Negative (Negative); PH,Urine 5.5 (5.0-7.0); Protein,Urine Trace (Neg - Trace); RBC,Urine 1 /hpf (0-3); Specific Gravity,Urine 1.025 (1.001-1.035); Squamous Epithelial Cell,Urine < 1 /hpf (0-5); Urobilinogen,Urine 2.0 mg/dL (0.0-1.0); WBC,Urine 2 /hpf (0-5)
[2024-12-05 12:46] LABS: Carcinoembryonic Antigen 2.2 ng/mL (0.0-5.0)
[2024-12-05 12:49] LABS: Alanine Aminotransferase 37 U/L (10-49); Albumin, Serum 3.9 gm/dL (3.4-4.8); Albumin/Globulin Ratio 1.4 (1.2-2.2); Alkaline Phosphatase 114 U/L (46-116); Anion Gap 9 (7-16); Aspartate Amino Transferase 43 U/L (0-34); BUN/Creatinine Ratio 11 Ratio (12-20); Bilirubin,Total 0.5 mg/dL (0.3-1.2); Blood Urea Nitrogen 11 mg/dL (9-23); Calcium 8.7 mg/dL (8.3-10.6); Calcium (Corrected) 8.8 mg/dL (8.5-10.1); Carbon Dioxide 23.7 mMol/L (20.0-31.0); Chloride 106 mMol/L (98-107); Creatinine (Component) 1.0 mg/dL (0.6-1.3); Globulin 2.7 gm/dL (2.3-3.5); Glucose 130 mg/dL (74-106); Osmolality,Calculated 278 (275-295); Potassium 3.7 mMol/L (3.4-5.1); Sodium 139 mMol/L (136-145); Total Protein 6.6 gm/dL (5.7-8.2); eGFR > 60 See Note
[2024-12-19 10:12] LABS: Collection Type, Urine Voided; RBC,Urine 0 /hpf (0-3); WBC,Urine 0 /hpf (0-5)
[2024-12-19 10:15] LABS: Basophils # (Auto) 0.0 Thou/mm3 (0.0-0.2); Basophils % (Auto) 0 % (0-2.5); Eosinophils # (Auto) 0.1 Thou/mm3 (0.0-0.5); Eosinophils % (Auto) 1 % (0-10); Hematocrit 37.7 % (41.0-53.0); Hemoglobin 12.6 g/dL (13.5-16.0); Immature Granulocytes Auto 0.02 Thou/mm3 (0.00-0.00); Lymphocytes # (Auto) 1.5 Thou/mm3 (1.0-4.8); Lymphocytes % (Auto) 28 % (10-50); Mean Corpuscular HGB Conc 33.4 g/dl (31.0-37.0); Mean Corpuscular Hemoglobin 34.7 pg (25.0-35.0); Mean Corpuscular Volume 104 fL (80-100); Monocytes # (Auto) 0.6 Thou/mm3 (0.0-0.8); Monocytes % (Auto) 11 % (0-12); Neutrophils # (Auto) 3.2 Thou/mm3 (1.8-7.7); Neutrophils % (Auto) 60 % (37-80); Nucleated Red Blood Cell # 0.00 Thou/mm3 (0.00-0.00); Nucleated Red Blood Cell % 0 /100 WBC (0); Platelet Count 166 Thou/mm3 (140-440); RDW Standard Deviation 63.1 fL (35.1-43.9); Red Blood Count 3.63 Miln/mm3 (4.50-5.90); White Blood Count 5.4 Thou/mm3 (3.8-10.6)
[2024-12-19 10:40] LABS: Bilirubin,Urine Negative (Negative); Blood,Urine Negative (Negative); Clarity,Urine Turbid (Clear/Hazy); Color,Urine Yellow (Lt Yel-Yel); Glucose, Urine Negative (Negative); Ketones,Urine Negative (Negative); Leukocyte Esterase,Urine Negative (Negative); Nitrite,Urine Negative (Negative); PH,Urine 5.0 (5.0-7.0); Protein,Urine Negative (Neg - Trace); Specific Gravity,Urine 1.024 (1.001-1.035); Squamous Epithelial Cell,Urine 1 /hpf (0-5); Urobilinogen,Urine Negative mg/dL (0.0-1.0)
[2024-12-19 10:43] LABS: Alanine Aminotransferase 58 U/L (10-49); Albumin, Serum 4.1 gm/dL (3.4-4.8); Albumin/Globulin Ratio 1.4 (1.2-2.2); Alkaline Phosphatase 135 U/L (46-116); Anion Gap 11 (7-16); Aspartate Amino Transferase 74 U/L (0-34); BUN/Creatinine Ratio 14 Ratio (12-20); Bilirubin,Total 0.7 mg/dL (0.3-1.2); Blood Urea Nitrogen 13 mg/dL (9-23); Calcium 9.2 mg/dL (8.3-10.6); Calcium (Corrected) 9.2 mg/dL (8.5-10.1); Carbon Dioxide 21.7 mMol/L (20.0-31.0); Chloride 106 mMol/L (98-107); Creatinine (Component) 0.9 mg/dL (0.6-1.3); Globulin 3.0 gm/dL (2.3-3.5); Glucose 128 mg/dL (74-106); Osmolality,Calculated 279 (275-295); Potassium 4.2 mMol/L (3.4-5.1); Sodium 139 mMol/L (136-145); Total Protein 7.1 gm/dL (5.7-8.2); eGFR > 60 See Note
[2024-12-19 10:47] LABS: Carcinoembryonic Antigen 3.1 ng/mL (0.0-5.0)
== END 2025-01-01 23:59 | disposition home or self-care (01) ==
LOC: SCTC 06:52
PROVIDERS: PCP Family Medicine; Referring Provider Family Medicine; Visit Provider Internal Medicine Hematology & Oncology
DX: Z51.11 Encounter for antineoplastic chemotherapy (principal); C18.7 Malignant neoplasm of sigmoid colon; C78.7 Secondary malignant neoplasm of liver and intrahepatic bile duct
CPT/HCPCS: 36591; 80053; 81001; 82378; 85025; 96413; A4216; J1642; J7040; J7050; Q5126

== ENCOUNTER 2025-01-24 13:16 | Outpatient (RCR) | payer MEDICARE, OTHER, MEDICAID, SELFPAY ==
[2025-01-03 08:11] LABS: Collection Type, Urine Voided
[2025-01-03 08:16] LABS: Basophils # (Auto) 0.0 Thou/mm3 (0.0-0.2); Basophils % (Auto) 0 % (0-2.5); Eosinophils # (Auto) 0.1 Thou/mm3 (0.0-0.5); Eosinophils % (Auto) 2 % (0-10); Hematocrit 34.5 % (41.0-53.0); Hemoglobin 11.5 g/dL (13.5-16.0); Immature Granulocytes Auto 0.02 Thou/mm3 (0.00-0.00); Lymphocytes # (Auto) 1.3 Thou/mm3 (1.0-4.8); Lymphocytes % (Auto) 29 % (10-50); Mean Corpuscular HGB Conc 33.3 g/dl (31.0-37.0); Mean Corpuscular Hemoglobin 34.4 pg (25.0-35.0); Mean Corpuscular Volume 103 fL (80-100); Monocytes # (Auto) 0.2 Thou/mm3 (0.0-0.8); Monocytes % (Auto) 6 % (0-12); Neutrophils # (Auto) 2.7 Thou/mm3 (1.8-7.7); Neutrophils % (Auto) 62 % (37-80); Nucleated Red Blood Cell # 0.00 Thou/mm3 (0.00-0.00); Nucleated Red Blood Cell % 0 /100 WBC (0); Platelet Count 145 Thou/mm3 (140-440); RDW Standard Deviation 57.4 fL (35.1-43.9); Red Blood Count 3.34 Miln/mm3 (4.50-5.90); White Blood Count 4.3 Thou/mm3 (3.8-10.6)
[2025-01-03 08:18] LABS: Bilirubin,Urine Negative (Negative); Blood,Urine Negative (Negative); Clarity,Urine Clear (Clear/Hazy); Color,Urine Yellow (Lt Yel-Yel); Glucose, Urine Negative (Negative); Ketones,Urine Negative (Negative); Leukocyte Esterase,Urine Negative (Negative); Nitrite,Urine Negative (Negative); PH,Urine 5.5 (5.0-7.0); Protein,Urine Negative (Neg - Trace); RBC,Urine < 1 /hpf (0-3); Specific Gravity,Urine 1.023 (1.001-1.035); Squamous Epithelial Cell,Urine < 1 /hpf (0-5); Urobilinogen,Urine Negative mg/dL (0.0-1.0); WBC,Urine 1 /hpf (0-5)
[2025-01-03 08:46] LABS: Alanine Aminotransferase 46 U/L (10-49); Albumin, Serum 4.1 gm/dL (3.4-4.8); Albumin/Globulin Ratio 1.4 (1.2-2.2); Alkaline Phosphatase 124 U/L (46-116); Anion Gap 9 (7-16); Aspartate Amino Transferase 54 U/L (0-34); BUN/Creatinine Ratio 14 Ratio (12-20); Bilirubin,Total 1.0 mg/dL (0.3-1.2); Blood Urea Nitrogen 11 mg/dL (9-23); Calcium 9.6 mg/dL (8.3-10.6); Calcium (Corrected) 9.6 mg/dL (8.5-10.1); Carbon Dioxide 24.3 mMol/L (20.0-31.0); Chloride 106 mMol/L (98-107); Creatinine (Component) 0.8 mg/dL (0.6-1.3); Globulin 3.0 gm/dL (2.3-3.5); Glucose 95 mg/dL (74-106); Osmolality,Calculated 276 (275-295); Potassium 4.2 mMol/L (3.4-5.1); Sodium 139 mMol/L (136-145); Total Protein 7.1 gm/dL (5.7-8.2); eGFR > 60 See Note
[2025-01-03 08:52] LABS: Carcinoembryonic Antigen 3.9 ng/mL (0.0-5.0)
--- NOTE | 2025-01-15 22:50 | CTCFLWUP_ITS ---
Patient: TED LIAO : 1950 Page 3 of 4 FOLLOW UP NOTE DATE OF SERVICE: 01/09/2025 NAME: TED LIAO ACCOUNT: [id number] : 1950 AGE: 74 INTERVAL HISTORY: Patient is doing well and do not report any side effects from Lonsurf. Patient is on Lonsurf and bevacizumab. Review of Systems General: Negative for pain. Musculoskeletal: Positive for foot pain (previous medication). Objective: Laboratory, Imaging, and Diagnostic Test Results - CT scan (September 19, 2024): Presumed post-treatment changes in the hepatic lobes without residual or recurrent neoplasm. - Mitchell test (previous): 33.40 (positive) - Tumor markers: ceaAlways normal (specific values not provided) ONCOLOGY HISTORY: DIAGNOSIS: Malignant neoplasm of sigmoid colon [ICD10] C18.7 DATE OF DIAGNOSIS: 05/27/2021 STAGE/TNM: Stage 4 TREATMENT HISTORY: Care?Plan Start?Date Cycle Day Intent CapOX?adj?T3N1?3mon?4?cycles 05/27/2021 1 21 Curative?(adjuvant) mFOLFOX-6?+?Bevacizumab?5?mg/kg 08/27/2021 1 14 Palliative Bevacizumab?7.5?mg/kg?-?Met 04/02/2022 1 21 Palliative FOLFIRI?-?5-FU?400?and?2400?CIV,?LVR?400,?Irinotecan?180 07/06/2023 1 28 Palliative Bevacizumab?5mg/kg 09/21/2023 1 28 Palliative Bevacizumab?5mg/kg 08/29/2024 1 28 Palliative HISTORY OF PRESENT ILLNESS: Patient is 74-year-old male Albanian-speaking, communication helped with by medical office specialist Ms. Garsia. 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 S/p sigmoid colectomy in April 2021. Patient was on modified FOLFOX plus bevacizumab between 08/28/19992021 till March 2022 at that time patient progressed and was started on FOLFIRI and Avastin starting July 06, 2023. On November 20, 2023 outside MRI showed 2 small right lobe liver lesions however PET was negative. Right liver biopsy confirmed metastatic adeno cell carcinoma cons istent with a colorectal cancer. Patient have been on chemotherapy since he was initially diagnosed with stage III colorectal cancer in 2020. Patient's last chemotherapy was on February 02, 2024. Patient was referred to [facility] for possible resection of the liver lesion. Patient is here to inform me that he already have appointment with the surgeon and doing well. He need to continue holding his therapy for at least 6 weeks before resection can be done. 07/11/2024nterior mildly enhancing right lobe liver lesion 5.6 cm compared to 1.[address] abdomen September 30, 2023 and compared to 14 mm on MR abdomen November 20, 2023 Posterior right lobe liver lesion measures 21 mm compared to [address] abdomen September 30, 2023 -Patient had RFA done on 07/21/2024. - Patient had recurrence in the liver while on treatment with FOLFIRI -Patient's naterra was downtrending and patient completed 12 cycles of FOLFIRI November 2024 patient was switched to Lonsurf and bevacizumab as patient was having increasing side effects from 5-FU and Mr. Liao wanted an oral drug option. OTHER MEDICAL HISTORY/CONDITIONS: FAMILY HISTORY: SOCIAL HISTORY: MEDICATIONS: 1. amlodipine - 5 mg 1 tab Daily 2. dutasteride - 0.5 mg 1 Capsule Daily 3. Lonsurf - 20-8.19 mg 35 mg/m*2 68.6 mg twice Daily 4. Lonsurf - 15-6.14 mg 3 tab twice daily 5. mouthwashes - As directed 6. ramipriL - 10 mg 1 Capsule Daily 7. simvastatin - 20 mg 1 tab Daily 8. tamsulosin - 0.4 mg 1 Capsule Daily Medications Last Reconciled by Cristina Gagnon MD on 01/09/2025 ALLERGIES: No Known Drug Allergies REVIEW OF SYSTEMS: A complete 14-point review of systems was performed and is negative except as noted in interval history. PHYSICAL EXAMINATION: VITAL SIGNS: Temperature?98.5, B/P?152/79, Oxygen?Saturation?93% Weight?187?lbs (Change?since?01/03/25:?1.2?lbs) PAIN: 0 - No pain ECOG Performance Status: None GENERAL APPEARANCE: Appears well, in no apparent distress, appropriately interactive. HEENT: Normocephalic, no temporal wasting, normal conjunctiva, no scleral icterus, normal hearing, lips without lesions, neck normal range of motion. CARDIOVASCULAR: Not assessed. PULMONARY: Normal respiratory effort, no respiratory distress or use of accessory muscles, speaking in full sentences, no tachypnea. EXTREMITIES: No pedal edema or cyanosis. SKIN: Normal skin appearance. NEUROLOGIC: Alert and oriented x4. PSHYCHIATRIC: Appropriate affect, mood normal, behavior normal, intact thought and speech. LABORATORY DATA: I have personally reviewed and interpreted each of the patient?s relevant lab tests, abnormal findings are below: Date 12/19/24 01/03/25 ??WHITE?BLOOD?COUNT?(Thou/mm3) ? 4.3 ??RED?BLOOD?COUNT?(Miln/mm3) ? 3.34?L ??HEMOGLOBIN?(gm/dl) ? 11.5?L ??HEMATOCRIT?(%) ? 34.5?L ??PLATELET?COUNT?(Thou/mm3) ? 145 ??NEUTROPHILS?%,?AUTO?(%) ? 62 ??LYMPH?%,?AUTO?(%) ? 29 ??NEUTROPHILS,?AUTO?(Thou/mm3) ? 2.7 ??GLUCOSE,RANDOM?(mg/dL) 128?H 95 ??BLOOD?UREA?NITROGEN?(mg/dL) 13 11 ??CREATININE?(mg/dL) 0.90 0.80 ??SODIUM?(mmol/L) 139 139 ??POTASSIUM?(mmol/L) 4.2 4.2 ??CHLORIDE?(mmol/L) 106 106 ??CrCl?(CandG)?(ml/min) 75.14 84.70 ??AST/SGOT?(Unit/L) 74?H 54?H ??ALT/SGPT?(Unit/L) 58?H 46 ??ALKALINE?PHOSPHATASE?(Unit/L) 135?H 124?H ??BILIRUBIN,?TOTAL?(mg/dL) 0.7 1.0 ??PROTEIN?TOTAL?(gm/dl) 7.1 7.1 ??ALBUMIN,?SERUM?(gm/dl) 4.1 4.1 ??GLOBULIN?(gm/dl) 3.0 3.0 ??ALBUMIN/GLOBULIN?RATIO 1.4 1.4 ??CALCIUM,?SERUM?(mg/dL) 9.2 9.6 ??CALCIUM?SERUM?(CORRECTED)?(mg/dL) 9.2 9.6 ??CEA?(O*)?(ng/ml) ? 3.9 ASSESSMENT/PLAN: Assessment and Plan: Ted Liao, a 74-year-old male with a history of colon cancer, presents for follow-up after liver RFA and ongoing chemotherapy. Colon cancer with liver metastasis Patient is on Lonsurf and bevacizumab. Medication management Assessment: plan is to continue Lonsurf along with bevacizumab Patient's liver lesion came up even when patient was on FOLFIRI and Elvi Will order CT scan to evaluate response to treatment Continue current therapy ORDERS: Order # Description [id number] CT Scan + Chest + Abdomen and Pelvis + With W/O Contrast [id number] MD Follow Up 4 Week RETURN TO CLINIC: I reviewed the diagnosis, prognosis, and recommended treatment/procedure options with the patient (and/or their legal outreach representative), including the potential benefits, risks, side effects and alternative therapies. We also discussed the option of no treatment and the possibility of clinical trial participation, if applicable. All questions were addressed, and they demonstrated understanding. They provided informed consent to proceed with the proposed plan of care. BILLING AND COMPLIANCE: I reviewed external records from providers outside my specialty as summarized above. I spent a total of 50 minutes on this patient?s care on the day of their visit excluding time spent related to any billed procedures. This time includes time spent with the patient as well as time spent documenting in the medical record, reviewing patients records and tests, obtaining history, placing orders, communicating with other healthcare professionals, counseling the patient, family or caregiver, and/or care coordination for the diagnoses above. Electronically Signed by: {Object.Sanct_ID*PnP.NameFL@M}, {Object.Sanct_ID*PnP.Suffix@U} D: {Object.Sanct_Date} T: {Object.Sanct_Time} CC: PCP: Eb Haney Referring: Eb Haney This document was completed utilizing speech recognition software. Grammatical errors, random word insertions, pronoun errors, and incomplete sentences are an occasional consequence of this system due to software limitations, ambient noise, and hardware issues. Any formal questions or concerns about the content, text or information contained within the body of this dictation should be directly addressed to the provider for clarification.
[2025-01-16 10:16] LABS: Collection Type, Urine Voided
[2025-01-16 10:40] LABS: Alanine Aminotransferase 55 U/L (10-49); Albumin, Serum 4.1 gm/dL (3.4-4.8); Albumin/Globulin Ratio 1.4 (1.2-2.2); Alkaline Phosphatase 154 U/L (46-116); Anion Gap 8 (7-16); Aspartate Amino Transferase 58 U/L (0-34); BUN/Creatinine Ratio 16 Ratio (12-20); Bilirubin,Total 0.6 mg/dL (0.3-1.2); Blood Urea Nitrogen 11 mg/dL (9-23); Calcium 8.8 mg/dL (8.3-10.6); Calcium (Corrected) 8.8 mg/dL (8.5-10.1); Carbon Dioxide 22.8 mMol/L (20.0-31.0); Chloride 109 mMol/L (98-107); Creatinine (Component) 0.7 mg/dL (0.6-1.3); Globulin 2.9 gm/dL (2.3-3.5); Glucose 100 mg/dL (74-106); Osmolality,Calculated 278 (275-295); Potassium 4.2 mMol/L (3.4-5.1); Sodium 140 mMol/L (136-145); Total Protein 7.0 gm/dL (5.7-8.2); eGFR > 60 See Note
[2025-01-16 10:46] LABS: Carcinoembryonic Antigen 3.8 ng/mL (0.0-5.0)
[2025-01-16 10:47] LABS: Basophils # (Auto) 0.0 Thou/mm3 (0.0-0.2); Basophils % (Auto) 0 % (0-2.5); Eosinophils # (Auto) 0.0 Thou/mm3 (0.0-0.5); Eosinophils % (Auto) 1 % (0-10); Hematocrit 34.4 % (41.0-53.0); Hemoglobin 11.6 g/dL (13.5-16.0); Immature Granulocytes Auto 0.01 Thou/mm3 (0.00-0.00); Lymphocytes # (Auto) 1.2 Thou/mm3 (1.0-4.8); Lymphocytes % (Auto) 43 % (10-50); Mean Corpuscular HGB Conc 33.7 g/dl (31.0-37.0); Mean Corpuscular Hemoglobin 35.4 pg (25.0-35.0); Mean Corpuscular Volume 105 fL (80-100); Monocytes # (Auto) 0.5 Thou/mm3 (0.0-0.8); Monocytes % (Auto) 17 % (0-12); Neutrophils # (Auto) 1.1 Thou/mm3 (1.8-7.7); Neutrophils % (Auto) 39 % (37-80); Nucleated Red Blood Cell # 0.00 Thou/mm3 (0.00-0.00); Nucleated Red Blood Cell % 0 /100 WBC (0); Platelet Count 146 Thou/mm3 (140-440); RDW Standard Deviation 62.7 fL (35.1-43.9); Red Blood Count 3.28 Miln/mm3 (4.50-5.90); White Blood Count 2.8 Thou/mm3 (3.8-10.6)
[2025-01-16 11:15] LABS: Bilirubin,Urine Negative (Negative); Blood,Urine Negative (Negative); Color,Urine Lt-Yellow (Lt Yel-Yel); Glucose, Urine Negative (Negative); Ketones,Urine Negative (Negative); Leukocyte Esterase,Urine Negative (Negative); Nitrite,Urine Negative (Negative); PH,Urine 5.5 (5.0-7.0); Protein,Urine Negative (Neg - Trace); RBC,Urine < 1 /hpf (0-3); Specific Gravity,Urine 1.020 (1.001-1.035); Squamous Epithelial Cell,Urine < 1 /hpf (0-5); Urobilinogen,Urine Negative mg/dL (0.0-1.0); WBC,Urine 1 /hpf (0-5)
[2025-01-16 11:18] LABS: Clarity,Urine Hazy (Clear/Hazy)
[2025-01-23 13:53] LABS: Collection Type, Urine Voided
[2025-01-23 14:03] LABS: Basophils # (Auto) 0.0 Thou/mm3 (0.0-0.2); Basophils % (Auto) 0 % (0-2.5); Eosinophils # (Auto) 0.0 Thou/mm3 (0.0-0.5); Eosinophils % (Auto) 1 % (0-10); Hematocrit 35.4 % (41.0-53.0); Hemoglobin 11.9 g/dL (13.5-16.0); Immature Granulocytes Auto 0.02 Thou/mm3 (0.00-0.00); Lymphocytes # (Auto) 1.4 Thou/mm3 (1.0-4.8); Lymphocytes % (Auto) 31 % (10-50); Mean Corpuscular HGB Conc 33.6 g/dl (31.0-37.0); Mean Corpuscular Hemoglobin 35.2 pg (25.0-35.0); Mean Corpuscular Volume 105 fL (80-100); Monocytes # (Auto) 0.6 Thou/mm3 (0.0-0.8); Monocytes % (Auto) 13 % (0-12); Neutrophils # (Auto) 2.4 Thou/mm3 (1.8-7.7); Neutrophils % (Auto) 54 % (37-80); Nucleated Red Blood Cell # 0.00 Thou/mm3 (0.00-0.00); Nucleated Red Blood Cell % 0 /100 WBC (0); Platelet Count 137 Thou/mm3 (140-440); RDW Standard Deviation 59.1 fL (35.1-43.9); Red Blood Count 3.38 Miln/mm3 (4.50-5.90); White Blood Count 4.6 Thou/mm3 (3.8-10.6)
[2025-01-23 14:15] LABS: Alanine Aminotransferase 68 U/L (10-49); Albumin, Serum 4.0 gm/dL (3.4-4.8); Albumin/Globulin Ratio 1.4 (1.2-2.2); Alkaline Phosphatase 168 U/L (46-116); Anion Gap 9 (7-16); Aspartate Amino Transferase 68 U/L (0-34); BUN/Creatinine Ratio 10 Ratio (12-20); Bilirubin,Total 0.3 mg/dL (0.3-1.2); Blood Urea Nitrogen 9 mg/dL (9-23); Calcium 8.8 mg/dL (8.3-10.6); Calcium (Corrected) 8.8 mg/dL (8.5-10.1); Carbon Dioxide 24.2 mMol/L (20.0-31.0); Chloride 107 mMol/L (98-107); Creatinine (Component) 0.9 mg/dL (0.6-1.3); Globulin 2.9 gm/dL (2.3-3.5); Glucose 131 mg/dL (74-106); Osmolality,Calculated 280 (275-295); Potassium 4.2 mMol/L (3.4-5.1); Sodium 140 mMol/L (136-145); Total Protein 6.9 gm/dL (5.7-8.2); eGFR > 60 See Note
[2025-01-23 14:18] LABS: Bilirubin,Urine Negative (Negative); Blood,Urine Negative (Negative); Clarity,Urine Clear (Clear/Hazy); Color,Urine Lt-Yellow (Lt Yel-Yel); Glucose, Urine Negative (Negative); Ketones,Urine Negative (Negative); Leukocyte Esterase,Urine Negative (Negative); Nitrite,Urine Negative (Negative); PH,Urine 5.5 (5.0-7.0); Protein,Urine Negative (Neg - Trace); RBC,Urine < 1 /hpf (0-3); Specific Gravity,Urine 1.017 (1.001-1.035); Squamous Epithelial Cell,Urine < 1 /hpf (0-5); Urobilinogen,Urine Negative mg/dL (0.0-1.0); WBC,Urine < 1 /hpf (0-5)
[2025-01-23 14:19] LABS: Carcinoembryonic Antigen 4.5 ng/mL (0.0-5.0)
== END 2025-01-31 23:59 | disposition home or self-care (01) ==
LOC: SCTC 13:16
PROVIDERS: PCP Family Medicine; Referring Provider Family Medicine; Visit Provider Internal Medicine Hematology & Oncology
DX: Z51.11 Encounter for antineoplastic chemotherapy (principal); C18.7 Malignant neoplasm of sigmoid colon; C78.7 Secondary malignant neoplasm of liver and intrahepatic bile duct
CPT/HCPCS: 36591; 80053; 81001; 82378; 85025; 96413; 99212; A4216; J1642; J3490; J7040; Q5126; G0463

== ENCOUNTER → 2025-02-06 | Outpatient (CLI) | payer MEDICARE, OTHER, MEDICAID, SELFPAY ==
--- NOTE | 2025-02-06 14:30 | XR_ITS ---
Examination: CT chest with intravenous contrast CT abdomen with intravenous contrast CT pelvis with intravenous contrast CT chest without intravenous contrast CTA abdomen without intravenous contrast CT pelvis without intravenous contrast 2-D coronal and sagittal reconstructions INDICATIONS: Diagnosis malignant neoplasm of the colon, restaging Time of exam: August 07, 2024, 1612 hours, comparison CT chest abdomen pelvis July 11, 2024, MRI abdomen November 20, 2023, PET CT scan November 03, 2023, CT chest abdomen pelvis March 17, 2023 CTDI: vol (mGy) : 18.8 DLP: (mGycm): 1500 Technique: Multiple axial images of the chest, abdomen and pelvis with intravenous contrast, 3.0 mm slice thickness. Images obtained post intravenous injection Isovue 370 60 cc. 2-D sagittal and coronal reconstructions. Low dose protocols were performed. One or more of the following dose reduction techniques were used; automated exposure control, adjustment of the mA and/or KV according to patient size, use of iterative reconstruction technique. Findings: No thoracic aortic aneurysmal dilatation No pulmonary artery emboli on this non-CTA study No paratracheal tracheobronchial or bronchopulmonary adenopathy. No interval pneumonia, pulmonary edema, pleural disease or pulmonary nodules Anterior right lobe liver lesion measures 4.7 cm compared to 5.6 cm on July 11, 2024 Posterior right lobe liver lesion measures 5.0 cm compared to 2.1 cm on July 11, 2024 13 mm enhancing medial right lobe liver lesion compared to 8 mm on July 11, 2024 No gallstones Spleen is not enlarged No pancreatic or adrenal mass No hydronephrosis Fat-containing anterior abdominal wall hernia defects Normal appendix No interval abdominal or pelvic lymphadenopathy Sutures in the rectosigmoid region Contracted urinary bladder Moderate osteopenia No interval osseous metastatic disease IMPRESSION: No interval mediastinal lymphadenopathy No interval pneumonia or pulmonary edema pleural disease or pulmonary nodules Anterior right lobe liver lesion measures 4.7 cm compared to 5.6 cm on July 11, 2024 CT study Posterior right lobe liver lesion measures 5.0 cm compared to 2.1 cm on July 11, 2024 CT study Medial right lobe liver lesion measures 13 mm compared to 8 mm on July 11, 2024 CT examination :
== END | disposition home or self-care (01) ==
PROVIDERS: PCP Family Medicine; Referring Provider Internal Medicine Hematology & Oncology; Visit Provider Internal Medicine Hematology & Oncology
DX: K76.9 Liver disease, unspecified (principal); C18.7 Malignant neoplasm of sigmoid colon; C78.7 Secondary malignant neoplasm of liver and intrahepatic bile duct
CPT/HCPCS: 71270; 74178; A4649; Q9967

== ENCOUNTER 2025-02-23 11:17 | Outpatient (RCR) | payer MEDICARE, OTHER, MEDICAID, SELFPAY ==
[2025-02-06 08:51] LABS: Collection Type, Urine Voided
[2025-02-06 08:58] LABS: Basophils # (Auto) 0.0 Thou/mm3 (0.0-0.2); Basophils % (Auto) 0 % (0-2.5); Eosinophils # (Auto) 0.1 Thou/mm3 (0.0-0.5); Eosinophils % (Auto) 2 % (0-10); Hematocrit 32.9 % (41.0-53.0); Hemoglobin 11.4 g/dL (13.5-16.0); Immature Granulocytes Auto 0.01 Thou/mm3 (0.00-0.00); Lymphocytes # (Auto) 1.0 Thou/mm3 (1.0-4.8); Lymphocytes % (Auto) 30 % (10-50); Mean Corpuscular HGB Conc 34.7 g/dl (31.0-37.0); Mean Corpuscular Hemoglobin 35.3 pg (25.0-35.0); Mean Corpuscular Volume 102 fL (80-100); Monocytes # (Auto) 0.2 Thou/mm3 (0.0-0.8); Monocytes % (Auto) 6 % (0-12); Neutrophils # (Auto) 2.1 Thou/mm3 (1.8-7.7); Neutrophils % (Auto) 62 % (37-80); Nucleated Red Blood Cell # 0.00 Thou/mm3 (0.00-0.00); Nucleated Red Blood Cell % 0 /100 WBC (0); Platelet Count 122 Thou/mm3 (140-440); RDW Standard Deviation 53.0 fL (35.1-43.9); Red Blood Count 3.23 Miln/mm3 (4.50-5.90); White Blood Count 3.3 Thou/mm3 (3.8-10.6)
[2025-02-06 09:11] LABS: Alanine Aminotransferase 55 U/L (10-49); Albumin, Serum 4.1 gm/dL (3.4-4.8); Albumin/Globulin Ratio 1.2 (1.2-2.2); Alkaline Phosphatase 147 U/L (46-116); Anion Gap 11 (7-16); Aspartate Amino Transferase 50 U/L (0-34); BUN/Creatinine Ratio 14 Ratio (12-20); Bilirubin,Total 0.8 mg/dL (0.3-1.2); Blood Urea Nitrogen 11 mg/dL (9-23); Calcium 9.1 mg/dL (8.3-10.6); Calcium (Corrected) 9.1 mg/dL (8.5-10.1); Carbon Dioxide 23.3 mMol/L (20.0-31.0); Chloride 104 mMol/L (98-107); Creatinine (Component) 0.8 mg/dL (0.6-1.3); Globulin 3.4 gm/dL (2.3-3.5); Glucose 123 mg/dL (74-106); Osmolality,Calculated 276 (275-295); Potassium 3.8 mMol/L (3.4-5.1); Sodium 138 mMol/L (136-145); Total Protein 7.5 gm/dL (5.7-8.2); eGFR > 60 See Note
[2025-02-06 09:12] LABS: Bilirubin,Urine Negative (Negative); Blood,Urine Negative (Negative); Clarity,Urine Clear (Clear/Hazy); Color,Urine Lt-Yellow (Lt Yel-Yel); Glucose, Urine Negative (Negative); Ketones,Urine Negative (Negative); Leukocyte Esterase,Urine Negative (Negative); Nitrite,Urine Negative (Negative); PH,Urine 5.5 (5.0-7.0); Protein,Urine Negative (Neg - Trace); RBC,Urine < 1 /hpf (0-3); Specific Gravity,Urine 1.020 (1.001-1.035); Squamous Epithelial Cell,Urine < 1 /hpf (0-5); Urobilinogen,Urine Negative mg/dL (0.0-1.0); WBC,Urine < 1 /hpf (0-5)
[2025-02-06 09:13] LABS: Carcinoembryonic Antigen 6.2 ng/mL (0.0-5.0)
[2025-02-06 09:14] LABS: Sperm,Urine Present
--- NOTE | 2025-02-15 05:39 | CTCFLWUP_ITS ---
Patient: TED LIAO : 1950 Page 3 of 5 FOLLOW UP NOTE DATE OF SERVICE: 02/14/2025 NAME: TED LIAO ACCOUNT: [id number] : 1950 AGE: 74 INTERVAL HISTORY: Visit summary --patient is doing well and do not report any side effects from Lonsurf. Patient is on Lonsurf and bevacizumab. Patient Signatera testing was concerning for progression. CT scan was completed on 02/06/2025 and is showing progression in the liver the lesions in the liver have increased since July 2024. Plan is to change chemotherapy to FOLFIRINOX. Review of Systems General: Negative for pain. Musculoskeletal: Positive for foot pain (previous medication). Objective: Laboratory, Imaging, and Diagnostic Test Results - CT scan (September 19, 2024): Presumed post-treatment changes in the hepatic lobes without residual or recurrent neoplasm. - Mitchell test (previous): 33.40 (positive) - Tumor markers: ceaAlways normal (specific values not provided) ONCOLOGY HISTORY:?[facility]one[facility] Oncology Hx? DIAGNOSIS: Malignant neoplasm of sigmoid colon [ICD10] C18.7 DATE OF DIAGNOSIS: 05/27/2021 STAGE/TNM: Stage 4 TREATMENT HISTORY: Care?Plan Start?Date Cycle Day Intent CapOX?adj?T3N1?3mon?4?cycles 05/27/2021 1 21 Curative?(adjuvant) mFOLFOX-6?+?Bevacizumab?5?mg/kg 08/27/2021 1 14 Palliative Bevacizumab?7.5?mg/kg?-?Met 04/02/2022 1 21 Palliative FOLFIRI?-?5-FU?400?and?2400?CIV,?LVR?400,?Irinotecan?180 07/06/2023 1 28 Palliative Bevacizumab?5mg/kg 09/21/2023 1 28 Palliative Bevacizumab?5mg/kg 08/29/2024 1 28 Palliative FOLFIRI?-?5-FU?400?and?2400?CIV,?LVR?400,?Irinotecan?180 02/14/2025 1 28 Palliative FOLFIRINOX?sang?pancreatic?cancer 02/15/2025 1 14 Palliative HISTORY OF PRESENT ILLNESS: Patient is 74-year-old male Kyrgyz-speaking, communication helped with by director medical writing Ms. Garsia. 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 S/p sigmoid colectomy in April 2021. Patient was on modified FOLFOX plus bevacizumab between 08/28/19992021 till March 2022 at that time patient progressed and was started on FOLFIRI and Avastin starting July 06, 2023. On November 20, 2023 outside MRI showed 2 small right lobe liver lesions however PET was negative. Right liver biopsy confirmed metastatic adeno cell carcinoma cons istent with a colorectal cancer. Patient have been on chemotherapy since he was initially diagnosed with stage III colorectal cancer in 2020. Patient's last chemotherapy was on February 02, 2024. Patient was referred to [facility] for possible resection of the liver lesion. Patient is here to inform me that he already have appointment with the surgeon and doing well. He need to continue holding his therapy for at least 6 weeks before resection can be done. 07/11/2024nterior mildly enhancing right lobe liver lesion 5.6 cm compared to 1.[address] abdomen September 30, 2023 and compared to 14 mm on MR abdomen November 20, 2023 Posterior right lobe liver lesion measures 21 mm compared to [address] abdomen September 30, 2023 -Patient had RFA done on 07/21/2024. - Patient had recurrence in the liver while on treatment with FOLFIRI -Patient's naterra was downtrending and patient completed 12 cycles of FOLFIRI November 2024 patient was switched to Lonsurf and bevacizumab as patient was having increasing side effects from 5-FU and Mr. Liao wanted an oral drug option. OTHER MEDICAL HISTORY/CONDITIONS: FAMILY HISTORY: ?Clone Family Hx? SOCIAL HISTORY: MEDICATIONS: 1. amlodipine - 5 mg 1 tab Daily 2. dutasteride - 0.5 mg 1 Capsule Daily 3. Lonsurf - 20-8.19 mg 35 mg/m*2 68.6 mg twice Daily 4. Lonsurf - 15-6.14 mg 3 tab twice daily 5. mouthwashes - As directed 6. ramipriL - 10 mg 1 Capsule Daily 7. simvastatin - 20 mg 1 tab Daily 8. tamsulosin - 0.4 mg 1 Capsule Daily?Palabra Meds? Medications Last Reconciled by Cristina Gagnon MD on 02/14/2025 ALLERGIES: No Known Drug Allergies REVIEW OF SYSTEMS: A complete 14-point review of systems was performed and is negative except as noted in interval history. PHYSICAL EXAMINATION:?CloneBlock PE? VITAL SIGNS: Temperature?98.5, B/P?136/72, Oxygen?Saturation?96% Weight?188?lbs (Change?since?02/07/25:?-2.4?lbs) PAIN: 0 - No pain ECOG Performance Status: 1 - Symptomatic; ambulatory; restricted in strenuous activity GENERAL APPEARANCE: Appears well, in no apparent distress, appropriately interactive. HEENT: Normocephalic, no temporal wasting, normal conjunctiva, no scleral icterus, normal hearing, lips without lesions, neck normal range of motion. CARDIOVASCULAR: Not assessed. PULMONARY: Normal respiratory effort, no respiratory distress or use of accessory muscles, speaking in full sentences, no tachypnea. EXTREMITIES: No pedal edema or cyanosis. SKIN: Normal skin appearance. NEUROLOGIC: Alert and oriented x4. PSHYCHIATRIC: Appropriate affect, mood normal, behavior normal, intact thought and speech. LABORATORY DATA: I have personally reviewed and interpreted each of the patient?s relevant lab tests, abnormal findings are below: Date 01/23/25 02/06/25 ??WHITE?BLOOD?COUNT?(Thou/mm3) 4.6 3.3?L ??RED?BLOOD?COUNT?(Miln/mm3) 3.38?L 3.23?L ??HEMOGLOBIN?(gm/dl) 11.9?L 11.4?L ??HEMATOCRIT?(%) 35.4?L 32.9?L ??PLATELET?COUNT?(Thou/mm3) 137?L 122?L ??NEUTROPHILS?%,?AUTO?(%) 54 62 ??LYMPH?%,?AUTO?(%) 31 30 ??NEUTROPHILS,?AUTO?(Thou/mm3) 2.4 2.1 ??GLUCOSE,RANDOM?(mg/dL) ? 123?H ??BLOOD?UREA?NITROGEN?(mg/dL) ? 11 ??CREATININE?(mg/dL) ? 0.80 ??SODIUM?(mmol/L) ? 138 ??POTASSIUM?(mmol/L) ? 3.8 ??CHLORIDE?(mmol/L) ? 104 ??CrCl?(CandG)?(ml/min) ? 85.09 ??AST/SGOT?(Unit/L) ? 50?H ??ALT/SGPT?(Unit/L) ? 55?H ??ALKALINE?PHOSPHATASE?(Unit/L) ? 147?H ??BILIRUBIN,?TOTAL?(mg/dL) ? 0.8 ??PROTEIN?TOTAL?(gm/dl) ? 7.5 ??ALBUMIN,?SERUM?(gm/dl) ? 4.1 ??GLOBULIN?(gm/dl) ? 3.4 ??ALBUMIN/GLOBULIN?RATIO ? 1.2 ??CALCIUM,?SERUM?(mg/dL) ? 9.1 ??CALCIUM?SERUM?(CORRECTED)?(mg/dL) ? 9.1 ??CEA?(O*)?(ng/ml) ? 6.2?H ASSESSMENT/PLAN:?Mike Salas Assessment/Plan? Assessment and Plan: Ted Liao, a 74-year-old male with a history of colon cancer, s/p RFA and chemotherapy Colon cancer with liver metastasis Patient is on Lonsurf and bevacizumab. Patient's CT DNA testing was showing increase in the tumor burden CT scan discussed with Mr. Liao which shows increase in the size of lesions in the liver. Right liver lobe lesion has increased to 5 cm from 2 cm since July\other lesion also increased to 13 mm from 8 mm Patient is unlikely to be responding to Lonsurf and Elvi Discussed with him and we will change chemotherapy to FOLFIRINOX which may help to decrease and control cancer in the liver Will start as soon as possible Patient can stop Lonsurf once scheduled for FOLFIRINOX ORDERS: Order # Description [id number] CBC with Auto Diff + Comprehensive Metabolic Panel + CA 19-9 [id number] Discontinue CIV Pump [id number] Infusion 2 Hours [id number] CBC [id number] Infusion 4 Hours [id number] Lab Appointment [id number] CBC with Auto Diff + Comprehensive Metabolic Panel + CA 19-9 [id number] Discontinue CIV Pump [id number] CBC + Comprehensive Metabolic Panel [id number] Lab Appointment [id number] Follow Up Appointment [id number] CBC + Comprehensive Metabolic Panel + CEA [id number] Lab Appointment [id number] Follow Up Appointment [id number] CBC with Auto Diff + Comprehensive Metabolic Panel + CA 19-9 [id number] CBC with Auto Diff + Comprehensive Metabolic Panel + CA 19-9 [id number] CBC with Auto Diff + Comprehensive Metabolic Panel + CA 19-9 [id number] CBC with Auto Diff + Comprehensive Metabolic Panel + CA 19-9 [id number] CBC with Auto Diff + Comprehensive Metabolic Panel + CA 19-9 [id number] CBC with Auto Diff + Comprehensive Metabolic Panel + CA 19-9 [id number] CBC with Auto Diff + Comprehensive Metabolic Panel + CA 19-9 [id number] CBC with Auto Diff + Comprehensive Metabolic Panel + CA 19-9 [id number] CBC with Auto Diff + Comprehensive Metabolic Panel + CA 19-9 [id number] CBC with Auto Diff + Comprehensive Metabolic Panel + CA 19-9 RETURN TO CLINIC: I reviewed the diagnosis, prognosis, and recommended treatment/procedure options with the patient (and/or their legal jewelry sales representative), including the potential benefits, risks, side effects and alternative therapies. We also discussed the option of no treatment and the possibility of clinical trial participation, if applicable. All questions were addressed, and they demonstrated understanding. They provided informed consent to proceed with the proposed plan of care. BILLING AND COMPLIANCE: I reviewed external records from providers outside my specialty as summarized above. I spent a total of 50 minutes on this patient?s care on the day of their visit excluding time spent related to any billed procedures. This time includes time spent with the patient as well as time spent documenting in the medical record, reviewing patients records and tests, obtaining history, placing orders, communicating with other healthcare professionals, counseling the patient, family or caregiver, and/or care coordination for the diagnoses above. Electronically Signed by: Amado Salas MD T: 5:37 AM CC: PCP: Eb Haney Referring: Eb Haney This document was completed utilizing speech recognition software. Grammatical errors, random word insertions, pronoun errors, and incomplete sentences are an occasional consequence of this system due to software limitations, ambient noise, and hardware issues. Any formal questions or concerns about the content, text or information contained within the body of this dictation should be directly addressed to the provider for clarification.
[2025-02-20 15:47] LABS: Basophils # (Auto) 0.0 Thou/mm3 (0.0-0.2); Basophils % (Auto) 0 % (0-2.5); Eosinophils # (Auto) 0.0 Thou/mm3 (0.0-0.5); Eosinophils % (Auto) 1 % (0-10); Hematocrit 33.0 % (41.0-53.0); Hemoglobin 11.3 g/dL (13.5-16.0); Immature Granulocytes Auto 0.00 Thou/mm3 (0.00-0.00); Lymphocytes # (Auto) 1.1 Thou/mm3 (1.0-4.8); Lymphocytes % (Auto) 37 % (10-50); Mean Corpuscular HGB Conc 34.2 g/dl (31.0-37.0); Mean Corpuscular Hemoglobin 36.1 pg (25.0-35.0); Mean Corpuscular Volume 105 fL (80-100); Monocytes # (Auto) 0.7 Thou/mm3 (0.0-0.8); Monocytes % (Auto) 23 % (0-12); Neutrophils # (Auto) 1.1 Thou/mm3 (1.8-7.7); Neutrophils % (Auto) 38 % (37-80); Nucleated Red Blood Cell # 0.00 Thou/mm3 (0.00-0.00); Nucleated Red Blood Cell % 0 /100 WBC (0); Platelet Count 151 Thou/mm3 (140-440); RDW Standard Deviation 58.7 fL (35.1-43.9); Red Blood Count 3.13 Miln/mm3 (4.50-5.90); White Blood Count 2.9 Thou/mm3 (3.8-10.6)
[2025-02-20 16:07] LABS: Alanine Aminotransferase 64 U/L (10-49); Albumin, Serum 3.9 gm/dL (3.4-4.8); Albumin/Globulin Ratio 1.3 (1.2-2.2); Alkaline Phosphatase 183 U/L (46-116); Anion Gap 9 (7-16); Aspartate Amino Transferase 68 U/L (0-34); BUN/Creatinine Ratio 12 Ratio (12-20); Bilirubin,Total 0.5 mg/dL (0.3-1.2); Blood Urea Nitrogen 11 mg/dL (9-23); Calcium 8.8 mg/dL (8.3-10.6); Calcium (Corrected) 8.9 mg/dL (8.5-10.1); Carbon Dioxide 24.9 mMol/L (20.0-31.0); Chloride 106 mMol/L (98-107); Creatinine (Component) 0.9 mg/dL (0.6-1.3); Globulin 3.1 gm/dL (2.3-3.5); Glucose 111 mg/dL (74-106); Osmolality,Calculated 279 (275-295); Potassium 4.3 mMol/L (3.4-5.1); Sodium 140 mMol/L (136-145); Total Protein 7.0 gm/dL (5.7-8.2); eGFR > 60 See Note
[2025-02-20 16:09] LABS: Carcinoembryonic Antigen 6.9 ng/mL (0.0-5.0)
== END 2025-03-03 23:59 | disposition home or self-care (01) ==
LOC: SCTC 11:17
PROVIDERS: PCP Family Medicine; Referring Provider Family Medicine; Visit Provider Internal Medicine Hematology & Oncology
DX: Z51.11 Encounter for antineoplastic chemotherapy (principal); C18.7 Malignant neoplasm of sigmoid colon; C78.7 Secondary malignant neoplasm of liver and intrahepatic bile duct
CPT/HCPCS: 36591; 71270; 74178; 80053; 81001; 82378; 85025; 96367; 96368; 96375; 96413; 96415; 96416; 96417; 99212; A4216; A4649; J0461; J0640; J1100; J1434; J1642; J2405; J3490; J7040; J7050; J7060; J9190; J9206; J9263; Q5126; Q9967; A9270; G0463

== ENCOUNTER 2025-03-21 07:45 | Outpatient (RCR) | payer MEDICARE, OTHER, MEDICAID, SELFPAY ==
[2025-03-06 10:52] LABS: Basophils # (Auto) 0.0 Thou/mm3 (0.0-0.2); Basophils % (Auto) 0 % (0-2.5); Eosinophils # (Auto) 0.0 Thou/mm3 (0.0-0.5); Eosinophils % (Auto) 1 % (0-10); Hematocrit 33.7 % (41.0-53.0); Hemoglobin 11.6 g/dL (13.5-16.0); Immature Granulocytes Auto 0.00 Thou/mm3 (0.00-0.00); Lymphocytes # (Auto) 1.0 Thou/mm3 (1.0-4.8); Lymphocytes % (Auto) 42 % (10-50); Mean Corpuscular HGB Conc 34.4 g/dl (31.0-37.0); Mean Corpuscular Hemoglobin 35.5 pg (25.0-35.0); Mean Corpuscular Volume 103 fL (80-100); Monocytes # (Auto) 0.4 Thou/mm3 (0.0-0.8); Monocytes % (Auto) 16 % (0-12); Neutrophils # (Auto) 1.0 Thou/mm3 (1.8-7.7); Neutrophils % (Auto) 41 % (37-80); Nucleated Red Blood Cell # 0.00 Thou/mm3 (0.00-0.00); Nucleated Red Blood Cell % 0 /100 WBC (0); Platelet Count 131 Thou/mm3 (140-440); RDW Standard Deviation 55.3 fL (35.1-43.9); Red Blood Count 3.27 Miln/mm3 (4.50-5.90); White Blood Count 2.5 Thou/mm3 (3.8-10.6)
[2025-03-06 11:04] LABS: Alanine Aminotransferase 107 U/L (10-49); Albumin, Serum 4.1 gm/dL (3.4-4.8); Albumin/Globulin Ratio 1.4 (1.2-2.2); Alkaline Phosphatase 220 U/L (46-116); Anion Gap 9 (7-16); Aspartate Amino Transferase 80 U/L (0-34); BUN/Creatinine Ratio 11 Ratio (12-20); Bilirubin,Total 0.3 mg/dL (0.3-1.2); Blood Urea Nitrogen 9 mg/dL (9-23); Calcium 9.0 mg/dL (8.3-10.6); Calcium (Corrected) 9.0 mg/dL (8.5-10.1); Carbon Dioxide 23.7 mMol/L (20.0-31.0); Chloride 105 mMol/L (98-107); Creatinine (Component) 0.8 mg/dL (0.6-1.3); Globulin 3.0 gm/dL (2.3-3.5); Glucose 129 mg/dL (74-106); Osmolality,Calculated 276 (275-295); Potassium 4.0 mMol/L (3.4-5.1); Sodium 138 mMol/L (136-145); Total Protein 7.1 gm/dL (5.7-8.2); eGFR > 60 See Note
[2025-03-06 11:05] LABS: Carcinoembryonic Antigen 4.4 ng/mL (0.0-5.0)
[2025-03-20 11:16] LABS: Basophils # (Auto) 0.0 Thou/mm3 (0.0-0.2); Basophils % (Auto) 1 % (0-2.5); Eosinophils # (Auto) 0.1 Thou/mm3 (0.0-0.5); Eosinophils % (Auto) 2 % (0-10); Hematocrit 35.8 % (41.0-53.0); Hemoglobin 12.3 g/dL (13.5-16.0); Immature Granulocytes Auto 0.03 Thou/mm3 (0.00-0.00); Lymphocytes # (Auto) 1.3 Thou/mm3 (1.0-4.8); Lymphocytes % (Auto) 22 % (10-50); Mean Corpuscular HGB Conc 34.4 g/dl (31.0-37.0); Mean Corpuscular Hemoglobin 35.2 pg (25.0-35.0); Mean Corpuscular Volume 103 fL (80-100); Monocytes # (Auto) 0.7 Thou/mm3 (0.0-0.8); Monocytes % (Auto) 12 % (0-12); Neutrophils # (Auto) 3.9 Thou/mm3 (1.8-7.7); Neutrophils % (Auto) 64 % (37-80); Nucleated Red Blood Cell # 0.00 Thou/mm3 (0.00-0.00); Nucleated Red Blood Cell % 0 /100 WBC (0); Platelet Count 129 Thou/mm3 (140-440); RDW Standard Deviation 53.1 fL (35.1-43.9); Red Blood Count 3.49 Miln/mm3 (4.50-5.90); White Blood Count 6.1 Thou/mm3 (3.8-10.6)
[2025-03-20 11:38] LABS: Carcinoembryonic Antigen 7.8 ng/mL (0.0-5.0)
[2025-03-20 11:41] LABS: Alanine Aminotransferase 85 U/L (10-49); Albumin, Serum 4.2 gm/dL (3.4-4.8); Albumin/Globulin Ratio 1.2 (1.2-2.2); Alkaline Phosphatase 226 U/L (46-116); Anion Gap 8 (7-16); Aspartate Amino Transferase 74 U/L (0-34); BUN/Creatinine Ratio 13 Ratio (12-20); Bilirubin,Total 0.4 mg/dL (0.3-1.2); Blood Urea Nitrogen 10 mg/dL (9-23); Calcium 9.4 mg/dL (8.3-10.6); Calcium (Corrected) 9.4 mg/dL (8.5-10.1); Carbon Dioxide 23.6 mMol/L (20.0-31.0); Chloride 105 mMol/L (98-107); Creatinine (Component) 0.8 mg/dL (0.6-1.3); Globulin 3.5 gm/dL (2.3-3.5); Glucose 140 mg/dL (74-106); Osmolality,Calculated 274 (275-295); Potassium 4.1 mMol/L (3.4-5.1); Sodium 137 mMol/L (136-145); Total Protein 7.7 gm/dL (5.7-8.2); eGFR > 60 See Note
== END 2025-04-02 23:59 | disposition home or self-care (01) ==
LOC: SCTC 07:45
PROVIDERS: PCP Family Medicine; Referring Provider Family Medicine; Visit Provider Internal Medicine Hematology & Oncology
DX: Z51.11 Encounter for antineoplastic chemotherapy (principal); C18.7 Malignant neoplasm of sigmoid colon; C78.7 Secondary malignant neoplasm of liver and intrahepatic bile duct
CPT/HCPCS: 36591; 80053; 82378; 85025; 96367; 96413; A4216; J0640; J1100; J1434; J1642; J2405; J3490; J7050; J7060; J9190; J9206; J9263; A9270

== ENCOUNTER 2025-03-21 10:30 | Emergency (ER) | payer MEDICARE, MEDICAID, SELFPAY ==
[2025-03-21] VITALS (8 sets, daily range): BP systolic 95–147; BP diastolic 54–72; PULSE 75–91; RESP 14–20; TEMP 34.6–36.8; O2SAT 94–95; BMI 32.3
--- NOTE | 2025-03-21 11:13 | EKG_ITS ---
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
--- NOTE | 2025-03-21 11:22 | PD.EDADULT ---
ED General RME/HPI General Chief complaint: General Adult/Misc Complain Stated complaint: BP DROPPED/DIAPHORETIC DURING CHEMO; CAME FROM [facility] Time Seen by Provider: 03/21/25 11:02 Arrival date/time: 03/21/25 10:30 RME / HPI RME / HPI narrative: CC: Low blood pressure at [facility] Patient is a 74-year-old male with a past medical history of hypertension, hyperlipidemia, with history of colonic adenocarinoma Stage IV with mets to liver lesions which appear to be increasing per oncology note with a recent chemotherapy change to Folfirinox. Other medications include Lonsurf and Vevacizumab. Patient presented from the [facility] center with chief complain of decrease in blood pressure and appeared diaphoretic during chemotherapy treamtment. Patinet denied diarrhea. Patient diarrhea. Denied sick contacts. Denied abdominal pain. Paitnet unsure of systolic blood pressure at home. Related Data Home Medications ?Medication ?Instructions ?Recorded ?Confirmed simvastatin 40 mg tablet (Zocor) 20 mg PO QPM 04/22/19 09/11/21 amlodipine 5 mg tablet 5 mg PO QDAY 04/15/21 09/11/21 dutasteride 0.5 mg capsule 0.5 mg PO QDAY 07/23/21 09/11/21 tamsulosin 0.4 mg capsule 0.4 mg PO DAILY 07/23/21 09/11/21 ramipril 10 mg capsule 10 cap PO QDAY 09/11/21 09/11/21 Allergies Allergy/AdvReac Type Severity Reaction Status Date / Time No Known Allergies Allergy Verified 03/21/25 10:33 Review of Systems Review of Systems Narrative Review of Systems: General appearance: NO weight change, NO fatigue, NO weakness, NO fever, NO chills, NO night sweats, No cough Skin: NO rash, NO itching, NO sores, NO moles HEENT: NO Trauma, NO nausea, NO vomiting, NO visual changes, NO blurry vision, NO double vision, NO tinnitus, NO vertigo, NO ear discharge, NO rhinorrhea, NO stuffiness, NO sneezing, NO allergy, NO epistaxis. NO Hoarseness, NO sore throat, NO swollen neck. Cardiac: NO Palpitations, NO dyspnea on exertion, NO orthopnea, NO paroxysmal nocturnal dyspnea, NO edema Respiratory: NO Shortness of Breath, NO Wheezing, NO Cough, NO Sputum, NO hemoptysis GI:NO appetite, NO nausea, NO vomiting, NO dysphagia, NO changes in bowel frequency, NO stool color, NO diarrhea, NO constipation, NO hemetemesis, NO hemorrhoids, NO melena, NO hematechezia, NO abdominal pain, NO jaundice Renal: NO frequency, NO hesitancy, NO urgency, NO hematuria, NO nocturia, NO incontinence MSK: NO muscle weakness, NO gout, NO arthritis, NO muscle stiffness Neuro: NO headaches, NO tremors, NO weakness, NO paralysis, NO seizures, NO loss of consciousness, NO numbness. Hem: NO anemia, NO easy bruising/bleeding, NO petechiae, NO purpura Endo: NO heat/cold intolerance, NO excessive sweating, NO polyuria, NO polydipsia, NO polyphagia, NO thyroid problems, NO diabetes Pysch: NO mood, NO anxiety, NO depression ED Exam Narrative Physical exam: General Appearance: Alert & Oriented X3, well-nourished male who is lying in bed in no acute distress HEENT: Skull symmetrical and atraumatic. Conjunctivae pink and moist. Pupils equal, round, reactive to light and accommodation (PERRL). External ear without lesion or discharge. Straight, nares patient, mucosa pink, no discharge. No thyroid nodule appreciated. No cervical lymphadenopathy. Cardio: Normal Rate and Rhythm with S1 and S2 heart sounds. No murmurs or extra heart sounds auscultated. No bruits on carotid auscultation. No peripheral edema or cyanosis. Lungs: Symmetric with good expansion. Chest and back non-tender. Breath sounds vesicular without crackles, wheezing or rhonchi Abdomen: Non-tender, Non-distended, Normal Reactive Bowel Sounds Neuro: Alert, cooperative, oriented to person, place, and time. Speech clear. CN grossly intact. Upper motor strength 5/5 and Lower motor strength 5/5. Sensation intact. Course Quality Measures none Orders Category Date Time Status Closet Builder Q4H START 00 Care 03/21/25 11:13 Active EKG (ED ONLY) *Do not use* NOW Care 03/21/25 11:13 Completed In and Out Catheter X1 Care 03/21/25 13:27 Active Insert IV STAT Care 03/21/25 11:13 Completed Miscellaneous Nursing Order X1 Care 03/21/25 11:14 Active Orthostatic Vitals X1 Care 03/21/25 11:12 Active EKG (ED Only) Stat Exams 03/21/25 11:13 Draft CBC Stat Lab 03/21/25 11:20 Completed CMP [Comprehensive Metabolic Panel] Stat Lab 03/21/25 11:20 Completed Lactic Acid [Lactate (Lactic Acid)] Routine Lab 03/21/25 12:24 Completed Lactic Acid [Lactate (Lactic Acid)] Stat Lab 03/21/25 11:20 Completed Lactic Acid, 3 HR Stat Lab 03/21/25 14:43 Completed Uric Acid Stat Lab 03/21/25 11:20 Completed Urinalysis, C/S if Indicated Stat Lab 03/21/25 14:33 Completed Ondansetron Odt [Zofran Odt] Med 03/21/25 11:13 Active 4 mg PO Q1HR PRN Ringers Lactated 1000 ml [Lactated Ringers] 1,000 ml Med 03/21/25 11:14 Discontinued IV 999 mls/hr Ringers Lactated 1000 ml [Lactated Ringers] 1,000 ml Med 03/21/25 12:46 Discontinued IV 999 mls/hr Vital Signs Vital signs: Vital Signs Pulse Rate 81 03/21/25 10:41 Respiratory Rate 20 03/21/25 10:41 Blood Pressure 101/59 L 03/21/25 10:41 Pulse Oximetry (%) 94 L 03/21/25 10:41 Oxygen Delivery Method Room Air 03/21/25 10:41 Discharge Plan Plan Patient Disposition: HOME (Self Care) Patient condition on transfer: Stable Health Concerns: Instructions: -You have been diagnosed with orthostatic hypotension as your blood pressure was low from laying to standing position. -Please wear compression socks when walking, stay hydrated, and check your blood pressure before taking your blood pressure medication. -Please follow up with your primary doctor if you need any changes to your blood pressure medication. -Please follow up with your primary care provider within one week of discharge -If your symptoms worsen,please seek immediate medical attention and return to your nearest emergency room -If you do not have a primary care provider, you may follow up at the [facility] at [address], [place] [address], Prescriptions/Referrals Prescriptions/Med Rec: Continued simvastatin [Zocor] 40 mg Tablet 20 mg PO QPM amlodipine 5 mg tablet 5 mg PO QDAY tamsulosin 0.4 mg capsule 0.4 mg PO DAILY dutasteride 0.5 mg capsule 0.5 mg PO QDAY Patient Comments: TAKE 1 CAPSULE BY MOUTH ONCE DAILY ramipril 10 mg capsule 10 cap PO QDAY Patient Comments: TAKE 1 CAPSULE BY MOUTH ONCE DAILY AT NOON Referrals: Eb Haney MD [Primary Care Provider, Family Practice] - In 1 week Problem List Clinical Impression: Orthostatic hypotension Patient/Caregiver Discharge Instructions Education Materials: ED Hypotension, Orthostatic Print Language: Macedonian Stand Alone Forms: Latrice Award Info., Patient Portal Info Letter MDM Narrative Sign Out note: Patient is a 74-year-old male hypertension, hyperlipidemia, and adenocarcinoma who presented to the emergency room with a chief complaint of low blood pressure and diaphoresis during chemotherapy at the cancer center. Patient was evaluated in the ER with no leukocytosis noted, anemia on CBC, and lactic acid mildly elevated 2.4 likely secondary to history of adenocarcinoma. Transaminitis elevated likely from mets to the liver. UA negative no respiratory symptoms EKG negative for ST elevation. Patient's orthostatics positive. Patient's home medication include antihypertensive which patient takes without checking his blood pressure. Likely diagnosis of orthostatic hypotension given positive orthostatic vitals. Meds/Rx considered, not ordered None Labs/Rad/Tests considered, not ordered None Chronic Illness/Social Conditions which may negatively complicate care or outcome(s)-explain: other (Hx of HTN and Colon Cancer ) Labs Labs: interpreted by ca Lab(s) Interpretation(s): CBC CMP UA No Leukocytosis, Anemia, Lactic Acid secondary to history of cancer, and UA negative. EKG no ST elevation Imaging Imaging interpretation: none Medication Administration(s) Medication Administration History Ondansetron HCl (Ondansetron Odt 4 Mg Tabrap) 4 mg PO Q1HR PRN PRN Reason: PERSISTENT NAUSEA OR VOMITING Discontinued Medications Lactated Ringer's (Lactated Ringers) 1,000 mls @ 999 mls/hr IV .Q1H1M ONE Stop: 03/21/25 12:14 Last Infusion: 03/21/25 13:30 Dose: Infused Documented By: Admin: 03/21/25 11:50 Dose: 999 mls/hr Documented By: ALLIE Lactated Ringer's (Lactated Ringers) 1,000 mls @ 999 mls/hr IV .Q1H1M ONE Stop: 03/21/25 13:46 Last Admin: 03/21/25 13:17 Dose: 999 mls/hr Documented By: ALLIE same as above Diagnosis Differential Diagnosis ED Complaint MDM: Vasovagal vs orthostatic hypotension vs ACS Diagnoses ruled out and/or further discussions: Patient is a 74-year-old male hypertension, hyperlipidemia, and adenocarcinoma who presented to the emergency room with a chief complaint of low blood pressure and diaphoresis during chemotherapy at the cancer center. Patient was evaluated in the ER with no leukocytosis noted, anemia on CBC, and lactic acid mildly elevated 2.4 likely secondary to history of adenocarcinoma. Transaminitis elevated likely from mets to the liver. UA negative no respiratory symptoms EKG negative for ST elevation. Patient's orthostatics positive. Patient's home medication include antihypertensive which patient takes without checking his blood pressure. Likely diagnosis of orthostatic hypotension given positive orthostatic vitals. - The patient's plan was discussed with attending Dr. Patria Leyva MD PGY2 Internal Medicine
[2025-03-21 11:36] LABS: Basophils # (Auto) 0.0 Thou/mm3 (0.0-0.2); Basophils % (Auto) 0 % (0-2.5); Eosinophils # (Auto) 0.1 Thou/mm3 (0.0-0.5); Eosinophils % (Auto) 1 % (0-10); Hematocrit 37.3 % (41.0-53.0); Hemoglobin 12.8 g/dL (13.5-16.0); Immature Granulocytes Auto 0.08 Thou/mm3 (0.00-0.00); Lymphocytes # (Auto) 3.0 Thou/mm3 (1.0-4.8); Lymphocytes % (Auto) 30 % (10-50); Mean Corpuscular HGB Conc 34.3 g/dl (31.0-37.0); Mean Corpuscular Hemoglobin 35.8 pg (25.0-35.0); Mean Corpuscular Volume 104 fL (80-100); Monocytes # (Auto) 0.6 Thou/mm3 (0.0-0.8); Monocytes % (Auto) 6 % (0-12); Neutrophils # (Auto) 6.4 Thou/mm3 (1.8-7.7); Neutrophils % (Auto) 62 % (37-80); Nucleated Red Blood Cell # 0.00 Thou/mm3 (0.00-0.00); Nucleated Red Blood Cell % 0 /100 WBC (0); Platelet Count 174 Thou/mm3 (140-440); RDW Standard Deviation 53.4 fL (35.1-43.9); Red Blood Count 3.58 Miln/mm3 (4.50-5.90); White Blood Count 10.2 Thou/mm3 (3.8-10.6)
[2025-03-21 11:46] LABS: Lactate (Lactic Acid) 2.4 mMol/L (0.4-2.0)
[2025-03-21] MEDS: RINGERS LACTATED 1000 ML 1,000 ML 999 ML IV ×2 (11:50→13:17)
--- NOTE | 2025-03-21 11:52 | PC.NURSE ---
pt temp low 94.9 rectal and md aware and wants fluids warmed, applied fluid warmer to bolus.
[2025-03-21 11:53] LABS: Alanine Aminotransferase 72 U/L (10-49); Albumin, Serum 4.1 gm/dL (3.4-4.8); Albumin/Globulin Ratio 1.3 (1.2-2.2); Alkaline Phosphatase 209 U/L (46-116); Anion Gap 11 (7-16); Aspartate Amino Transferase 64 U/L (0-34); BUN/Creatinine Ratio 9 Ratio (12-20); Bilirubin,Total 0.4 mg/dL (0.3-1.2); Blood Urea Nitrogen 9 mg/dL (9-23); Calcium 8.7 mg/dL (8.3-10.6); Calcium (Corrected) 8.7 mg/dL (8.5-10.1); Carbon Dioxide 22.2 mMol/L (20.0-31.0); Chloride 105 mMol/L (98-107); Creatinine (Component) 1.0 mg/dL (0.6-1.3); Estimated Creatinine Clearance 70.4 mL/min (>60); Globulin 3.1 gm/dL (2.3-3.5); Glucose 134 mg/dL (74-106); Osmolality,Calculated 276 (275-295); Potassium 3.8 mMol/L (3.4-5.1); Sodium 138 mMol/L (136-145); Total Protein 7.2 gm/dL (5.7-8.2); Uric Acid 5.3 mg/dL (3.7-9.2); eGFR > 60 See Note
[2025-03-21 12:28] LABS: Lactate (Lactic Acid) 2.6 mMol/L (0.4-2.0)
[2025-03-21 14:31] LABS: Reflex Lactate? Y
[2025-03-21 14:43] LABS: Collection Type, Urine Clean Catch
[2025-03-21 14:48] LABS: Bilirubin,Urine Negative (Negative); Blood,Urine Negative (Negative); Clarity,Urine Clear (Clear/Hazy); Color,Urine Lt-Yellow (Lt Yel-Yel); Culture Indicated,Urine Not Indicated; Glucose, Urine Negative (Negative); Hyaline Casts,Urine < 1 /hpf (0-1); Ketones,Urine Negative (Negative); Leukocyte Esterase,Urine Negative (Negative); Nitrite,Urine Negative (Negative); PH,Urine 6.5 (5.0-7.0); Protein,Urine Negative (Neg - Trace); RBC,Urine 3 /hpf (0-3); Specific Gravity,Urine 1.010 (1.001-1.035); Squamous Epithelial Cell,Urine < 1 /hpf (0-5); Urobilinogen,Urine Negative mg/dL (0.0-1.0); WBC,Urine < 1 /hpf (0-5)
[2025-03-21 14:52] LABS: Lactic Acid, 3 HR 1.9 mMol/L (0.4-2.0)
[2025-03-21 15:29] LABS: Reflex Lactate? Y
== END 2025-03-21 17:25 | disposition home or self-care (01) ==
PROVIDERS: Emergency Provider Emergency Medicine; PCP Family Medicine
DX: I95.1 Orthostatic hypotension (principal); C78.7 Secondary malignant neoplasm of liver and intrahepatic bile duct; E78.5 Hyperlipidemia, unspecified; I10 Essential (primary) hypertension; C18.9 Malignant neoplasm of colon, unspecified
CPT/HCPCS: 36415; 80053; 81001; 83605; 84550; 85025; 93005; 96360; 96361; 99283; J7120